=== PATIENT | female | born 1955 | race Caucasian/White ===

== ENCOUNTER → 2017-04-17 | Outpatient (CLI) | payer BC, SELFPAY | PROVIDERS: Visit Provider Internal Medicine Adolescent Medicine | DX: Z12.31 Encounter for screening mammogram for malignant neoplasm of breast (principal) | CPT/HCPCS: 77067; G0202 ==

== ENCOUNTER → 2018-07-11 15:17 | Outpatient (CLI) | payer BC, SELFPAY ==
--- NOTE | 2018-07-11 15:22 | XR_ITS ---
XR hand LT min 3V HISTORY: ITS.REASON: PRIMARY OSTEOARTHRITIS OF LEFT HAND ORDERING PHYSICIAN: Jesus Vicente MD PATIENT AGE: 62 years COMPARISON: None FINDINGS: There are osteoarthritic changes of the first metacarpal carpal joint. There is some sclerosis involving the proximal aspect of the second metacarpal at the first and second metacarpal junction which may be due to osteoarthritic changes. Incidental note is made of triangular fibrocartilage calcification. The metacarpal phalangeal joints and phalanges have an unremarkable appearance. No erosive changes are evident. 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
--- NOTE | 2018-07-11 15:22 | XR_ITS ---
XR hand RT min 3V HISTORY: ITS.REASON: PRIMARY OSTEOARTHRITIS OF RT HAND, pain ORDERING PHYSICIAN: Jesus Vicente MD PATIENT AGE: 62 years COMPARISON: None FINDINGS: There are moderate osteoarthritic changes of the first, second, and third metacarpophalangeal joint as well as the PIP joint of the third and fourth fingers. There is mild ulnar deviation of the phalanges. This may be positional as opposed to pathological. No fracture or dislocation. No erosive changes. IMPRESSION: Mild osteoarthritis of the right hand
== END ==
PROVIDERS: PCP Internal Medicine Adolescent Medicine; Visit Provider Internal Medicine Adolescent Medicine
DX: M19.041 Primary osteoarthritis, right hand (principal); M19.042 Primary osteoarthritis, left hand
CPT/HCPCS: 73130

== ENCOUNTER → 2019-06-20 07:30 | Outpatient (CLI) | payer BC, SELFPAY ==
[2019-06-20 07:56] LABS: Basophils # 0.1 K/mm3 (0-0.2); Eosinophils # 0.3 K/mm3 (0.0-0.4); Lymphocytes # 1.3 K/mm3 (0.7-4.5); Lymphocytes % 17.5 % (10-50); Red Blood Count 5.24 M/mm3 (4.20-5.40); Red Cell Distribution Width 13.7 % (11.5-17.5)
[2019-06-20 10:22] LABS: Chloride 105 mmol/L (98-107)
[2019-06-20 10:23] LABS: Potassium 4.2 mmoL/L (3.5-5.1); Sodium 139 mmol/L (136-145)
[2019-06-20 10:25] LABS: Alanine Aminotransferase 36 U/L (12-78); Blood Urea Nitrogen 19 mg/dl (7-17); Estimated Glomerular Filt Rate 56 ml/min (>60); GFR (African American) 68 ML/MIN (>60)
[2019-06-20 10:26] LABS: Albumin Level 3.9 g/dl (3.5-5.0); Albumin/Globulin Ratio 1.6 (1.1-1.8); Alkaline Phosphatase 113 U/L (38-126); Anion Gap 11.2 mEq/L (5-15); Aspartate Amino Transferase 37 U/L (14-36); Calcium 9.7 mg/dl (8.4-10.2); Carbon Dioxide 27 mmol/L (22.0-30.0); Chol/HDL Ratio 5.2 (1-3.5); Cholesterol 207 mg/dl (140-200); Globulin 2.5 g/dL (1.3-3.2); Glucose 99 mg/dl (74-100); HDL Cholesterol 40 mg/dl (40-60); Total Protein,Serum 6.4 g/dl (6.3-8.2); Triglycerides 375 mg/dl (30-150); VLDL Cholesterol 75 mg/dL (0-40)
[2019-06-20 10:37] LABS: Direct LDL Cholesterol 87.61 mg/dL (100-129)
[2019-06-20 10:38] LABS: Basophils % 1.2 % (0.1-2.0); Eosinophils % 3.7 % (0.1-12.0); Hematocrit 46.3 % (37.0-47.0); Mean Corpuscular HGB Conc 32.4 g/dL (31.8-35.4); Mean Corpuscular Hemoglobin 28.6 pg (27.0-31.2); Mean Corpuscular Volume 88.4 fl (81-99); Mean Platelet Volume 8.7 fl (7.4-10.4); Monocytes # 0.5 K/mm3 (0.1-1.0); Monocytes % 6.9 % (1.7-9.3); Neutrophils # 5.2 K/mm3 (1.8-7.8); Neutrophils % 70.6 % (37.0-80.0); Platelet Count 302 K/mm3 (142-424); White Blood Count 7.3 K/mm3 (4.8-10.8)
[2019-06-20 10:57] LABS: Thyroid Stimulating Hormone 0.82 uIU/mL (0.465-4.68)
== END ==
PROVIDERS: Visit Provider Internal Medicine Adolescent Medicine
DX: E78.1 Pure hyperglyceridemia (principal); M15.0 Primary generalized (osteo)arthritis; R60.9 Edema, unspecified
CPT/HCPCS: 36415; 80053; 80061; 84443; 85025

== ENCOUNTER → 2019-10-13 15:42 | Outpatient (CLI) | payer BC, SELFPAY ==
--- NOTE | 2019-10-13 | MM_ITS ---
PROCEDURE: MM DIG SCREENING MAMM BI W/CAD DIGITAL BREAST TOMOSYNTHESIS INCLUDED Patient Age:64Y CLINICAL INDICATION: 64-year-old. Routine screening. No hormones no new complaints. Noncontributory family history COMPARISON: OUTSIDE MAMMOGRAM STUDIES FROM [facility] NOW AVAILABLE DIGMAMMS MAMMOGRAM SCREEN-DIE DESIGNER N/C from 11/24/2009 DIGMAMMS MAMMOGRAM SCREEN-DIE DESIGNER N/C from 08/14/2011 [facility] DIG MAMM-SCREEN DANIEL W/CAD from 04/17/2017 TECHNIQUE: Standard CC and MLO images were obtained. R2 CAD reviewed. Bilateral digital breast tomosynthesis included. FINDINGS: Low-density breast with diffuse fatty replacement. No dominant or suspicious new mass. no suspicious calcifications. Scattered benign calcifications with no significant change since march 2017. Benign spherical dense benign calcifications most evident on left; with a few small secretory calcifications on right. Left Breast. Small The 7 Mm Ring-like Area Of Reflecting Focus Of Stable Oil Cyst Fatty Necrosis No Significant New findings either breast Follow-up 1 year recommended IMPRESSION: 1..Stable mammogram. No new areas of concern. Low-density breast generalized fatty replacement Bilateral follow-up 1 year recommended BI-RAD Category: 2 Benign Finding(s) FOLLOW-UP: 1YR 1 Year Follow-up the (A letter has been sent to the patient regarding results of the study.) Dictated by: Stalin Ugalde MD 10/20/2019 12:07 Electronically signed by Stalin Ugalde MD in [place] 10/20/2019 12:07
== END ==
PROVIDERS: PCP Internal Medicine Adolescent Medicine; Visit Provider Nurse Practitioner Family
DX: Z12.31 Encounter for screening mammogram for malignant neoplasm of breast (principal)
CPT/HCPCS: 77063; 77067

== ENCOUNTER → 2019-11-26 12:51 | Outpatient (CLI) | payer BC, SELFPAY ==
--- NOTE | 2019-11-26 12:59 | CT_ITS ---
PROCEDURE: CT MASTOID W/O CLINICAL HISTORY: Recurrence/frequent mastoiditis COMPARISON: No exams were available for comparison TECHNIQUE: Axial images obtained with sagittal and coronal reformats. All CT scans at the facility use one or more dose reduction, viz: automated exposure control, ma/kV adjustment per patient size (including targeted exams where dose is matched to indication, i.e. head), or iterative reconstruction technique. FINDINGS: Exam is performed without IV contrast. The right mastoid sinus has an unremarkable appearance. There is some minimal opacification of the left mastoid air cells along the inferior tip of the mastoid sinus and also along the posterior and superior aspect of the left mastoid sinus. The middle ears are where aerated bilaterally. The middle ear ossicles have an unremarkable appearance. There is no evidence of scutal erosion or cholesteatoma. The acoustic foramina are symmetric. No bony destructive process is evident. IMPRESSION: There is mild opacification of the left mastoid sinus suggesting underlying inflammatory change without evidence of acute mastoiditis/bony destructive change or cholesteatoma. Dictated b Keanu Mcgrath MD 11/26/2019 17:12 Keanu Mcgrath MD in [place] 11/26/2019 17:12
--- NOTE | 2019-11-26 13:00 | CT_ITS ---
PROCEDURE: CT FACIAL BONES WO CON CLINICAL HISTORY: RECURRENT MAXILLARY, MASTOIDITIS OF BOTH SIDES For current maxillary sinusitis COMPARISON: No exams were available for comparison TECHNIQUE: Axial images obtained with sagittal and coronal reformats. All CT scans at the facility use one or more dose reduction, viz: automated exposure control, ma/kV adjustment per patient size (including targeted exams where dose is matched to indication, i.e. head), or iterative reconstruction technique. FINDINGS: No mucosal thickening or air-fluid levels. The ostiomeatal complexes are patent. No significant nasal septal deviation. No sinus mass or bony erosive process. The TMJs have an unremarkable appearance. The orbits are unremarkable. There is only minimal mucosal thickening of the anterior and superior aspect of the right maxillary sinus. IMPRESSION: No acute finding CT sinuses. There is minimal mucosal thickening of the right maxillary sinus anteriorly and superiorly which is of questionable clinical significance Dictated b Keanu Mcgrath MD 11/26/2019 17:24 Keanu Mcgrath MD in [facility] 11/26/2019 17:24
== END ==
PROVIDERS: PCP Internal Medicine Adolescent Medicine; Visit Provider Internal Medicine Adolescent Medicine
DX: J01.01 Acute recurrent maxillary sinusitis (principal); H70.93 Unspecified mastoiditis, bilateral
CPT/HCPCS: 70486

== ENCOUNTER 2020-01-05 14:48 | Observation (INO) | payer BC, SELFPAY ==
[2020-01-05] VITALS (28 sets, daily range): BP systolic 128–184; BP diastolic 77–110; PULSE 72–102; RESP 16–20; TEMP 36.1–43; O2SAT 93–97; BMI 33.6; BMI 33.7
--- NOTE | 2020-01-05 14:49 | XR_ITS ---
PROCEDURE: XR ANKLE RT 2V CLINICAL INDICATION: fall, deformity noted Posttraumatic pain COMPARISON: No exams were available for comparison FINDINGS: There is fracture dislocation of the ankle. Two views are obtained demonstrating lateral dislocation of the talus with comminuted and displaced fracture of the distal fibula. There is foreshortening of the ankle with bending of the talus on the distal tibia. There is displaced avulsion fracture medial malleolus with the fracture fragment displaced laterally by 2 cm. IMPRESSION: Fracture dislocation of the ankle Dictated by: Keanu Mcgrath MD 01/05/2020 16:35 Keanu Mcgrath MD in [place] 01/05/2020 16:35
--- NOTE | 2020-01-05 14:50 | PC.NURSE ---
notified rad of xray order, spoke with anthony
--- NOTE | 2020-01-05 14:59 | PC.NURSE ---
CLYDE ENCISO spoke with Dr. Aguero at this time
--- NOTE | 2020-01-05 15:00 | XR_ITS ---
PROCEDURE: XR CHEST PORTABLE CLINICAL HISTORY: pre-op COPD COMPARISON: CR CXR CHEST(2 VIEWS-NOT PORTABLE) from 01/23/2016 FINDINGS: The cardiomediastinal silhouette and pulmonary vascularity are within normal limits. The lungs are clear without infiltrates, suspicious nodules, or pleural effusions. No acute bony abnormalities. IMPRESSION: No acute findings. Dictated by: Keanu Mcgrath MD 01/05/2020 16:32 Keanu Mcgrath MD in [place] 01/05/2020 16:32
--- NOTE | 2020-01-05 15:01 | PC.NURSE ---
rad at BS for portable xray
--- NOTE | 2020-01-05 15:01 | HMH.EDGENADL ---
ED Disposition Clinical Impression: Fracture dislocation of right ankle Qualifiers: Encounter type: initial encounter Fracture type: open Open fracture type: open type I or II Qualified Code(s): S82.891B - Other fracture of right lower leg, initial encounter for open fracture type I or II Disposition: Still a Patient Condition on Discharge: Fair - Critical Care Critical Care Time: No Attestation: On 01/05/20, the high probability of a clinically significant, sudden or life threatening deterioration of the following system(s) required my full and direct attention, intervention and personal management. The time I documented below is in addition to time spent performing reported procedures but includes the following listed in this critical care notation. Medical Decision Making - Medical Records Medical records reviewed: Yes: I reviewed the patient's medical records. - Refugio Inquiry Pt receiving controlled substance: Yes Refugio was queried for this patient: No Reason not queried -: Emergent pt cond-no time Risks and benefits of using a controlled substance: were not discussed with pt by me Vital Signs: 01/05/20 14:48 01/05/20 15:01 01/05/20 15:30 Temperature 99.4 F Temperature Source Oral Pulse Rate [Right Radial] 96 H 89 98 H Respiratory Rate 18 18 18 Blood Pressure [Right Arm] 128/84 149/77 H 157/93 H Blood Pressure Mean [Right Arm] 98 101 114 Blood Pressure Source [Right Arm] Automatic Cuff Automatic Cuff Automatic Cuff Blood Pressure Position [Right Arm] Sitting Sitting 02 Sat by Pulse Oximetry 93 L 95 93 L Oxygen Delivery Method Room Air Room Air Room Air Oxygen Flow Rate (LPM) 01/05/20 16:02 01/05/20 16:07 01/05/20 16:10 Temperature Temperature Source Pulse Rate [Right Radial] 102 H 95 H 93 H Respiratory Rate 18 16 16 Blood Pressure [Right Arm] 147/103 H 134/88 144/83 H Blood Pressure Mean [Right Arm] 117 103 103 Blood Pressure Source [Right Arm] Automatic Cuff Automatic Cuff Automatic Cuff Blood Pressure Position [Right Arm] Sitting Sitting 02 Sat by Pulse Oximetry 96 94 L 93 L Oxygen Delivery Method Nasal Cannula Nasal Cannula Nasal Cannula Oxygen Flow Rate (LPM) 2 2 01/05/20 16:15 Temperature Temperature Source Pulse Rate [Right Radial] 94 H Respiratory Rate 16 Blood Pressure [Right Arm] 142/84 H Blood Pressure Mean [Right Arm] 103 Blood Pressure Source [Right Arm] Automatic Cuff Blood Pressure Position [Right Arm] Sitting 02 Sat by Pulse Oximetry 94 L Oxygen Delivery Method Nasal Cannula Oxygen Flow Rate (LPM) 2 - Lab Data Lab results reviewed: Yes: I reviewed the patient's lab results. Lab Results 01/05/20 16:00: WBC 16.9 H, RBC 4.71, Hgb 14.6, Hct 43.2, MCV 91.6, MCH 31.1, MCHC 33.9, RDW 14.2, Plt Count 301, MPV 7.1 L, Neut % (Auto) 84.6 H, Lymph % (Auto) 8.8 L, [place] % (Auto) 5.3, Eos % (Auto) 0.7, Baso % (Auto) 0.6, Neut # (Auto) 14.3 H, Lymph # (Auto) 1.5, [place] # (Auto) 0.9, Eos # (Auto) 0.1, Baso # (Auto) 0.1, Total Counted 100, Neutrophils % (Manual) 78 H, Lymphocytes % (Manual) 20, Monocytes % (Manual) 2, Platelet Estimate Normal, RBC Morphology Normal 01/05/20 16:00: Sodium 144, Potassium 4.2, Chloride 112 H, Carbon Dioxide 26, Anion Gap 10.2, BUN 21 H, Creatinine 1.20 H, Estimated Creat Clear 66, Estimated GFR 46 L, Est GFR ( Amer) 55 L, Glucose 93, Calcium 9.0 01/05/20 16:00: SARS-CoV-2 IgG Ab (Rapid) Negative, SARS-CoV-2 IgM Ab (Rapid) Negative Result diagrams: 01/05/20 16:00 01/05/20 16:00 Orders (Tests/Meds): ED MEDICATIONS Generic Name Dose Route Start Last Admin Trade Name Freq PRN Reason Stop Dose Admin Acetaminophen 650 mg 01/05/20 18:44 Acetaminophen 325mg Tab PO 02/04/20 18:43 Q6HP PRN Mild to Moderate Pain Atorvastatin Calcium 40 mg 01/06/20 09:00 Lipitor 40mg Tablet PO 02/05/20 08:59 DAILY JOHN Lisinopril/HCTZ 1 each 01/06/20 09:00 Zestoretic 10/12.5mg Tablet PO 02/05/20 08:59 DAILY JOHN Hydr
--- NOTE | 2020-01-05 15:22 | PC.NURSE ---
Dr. Aguero at BS
--- NOTE | 2020-01-05 15:27 | PC.NURSE ---
Dr. Aguero reports she has already been in contact with Dr. Vicente about pt.
--- NOTE | 2020-01-05 16:02 | PC.NURSE ---
Dr Jasmine and Magdiel from anesthesia at for reduction of R ankle fracture and dislocation. Pt on O2 @ 2L per NC NS infusing per open rate in 20 g IV In L AC management services technician in place. Anesthesia administered Fentanyl 100 mcg, Lidocaine 100 mg, Propofol 100mg per IV for conscious sedation. Magdiel from anesthesia states he would use the rest of the vial of fentanyl for pts surgery.
--- NOTE | 2020-01-05 16:04 | XR_ITS ---
PROCEDURE: XR TIBIA FIBULA RT 2V CLINICAL INDICATION: post reduction Postreduction ankle dislocation COMPARISON: No exams were available for comparison FINDINGS: There has been interval reduction of the ankle dislocation. There is mild residual lateral subluxation of the talus with 13 mm lateral displacement. Transverse fracture involves the base of the medial malleolus. The medial malleolus is displaced laterally by 13 mm. Comminuted fracture involves the distal aspect of the fibula with mild lateral angulation and 7 mm lateral displacement of the distal fracture fragment. IMPRESSION: Status post reduction of the ankle dislocation with improved but persistent lateral angulation and displacement of the distal fracture fragments Dictated by: Keanu Mcgrath MD 01/05/2020 17:23 Keanu Mcgrath MD in [place] 01/05/2020 17:23
[2020-01-05 16:14] LABS: Basophils # 0.1 K/mm3 (0-0.2); Basophils % 0.6 % (0.1-2.0); Eosinophils # 0.1 K/mm3 (0.0-0.4); Eosinophils % 0.7 % (0.1-12.0); Hematocrit 43.2 % (37.0-47.0); Hemoglobin 14.6 g/dL (12.2-16.2); Lymphocytes # 1.5 K/mm3 (0.7-4.5); Lymphocytes % 8.8 % (10-50); Mean Corpuscular HGB Conc 33.9 g/dL (31.8-35.4); Mean Corpuscular Hemoglobin 31.1 pg (27.0-31.2); Mean Corpuscular Volume 91.6 fl (81-99); Mean Platelet Volume 7.1 fl (7.4-10.4); Monocytes # 0.9 K/mm3 (0.1-1.0); Monocytes % 5.3 % (1.7-9.3); Neutrophils # 14.3 K/mm3 (1.8-7.8); Neutrophils % 84.6 % (37.0-80.0); Platelet Count 301 K/mm3 (142-424); Red Blood Count 4.71 M/mm3 (4.20-5.40); Red Cell Distribution Width 14.2 % (11.5-17.5); White Blood Count 16.9 K/mm3 (4.8-10.8)
--- NOTE | 2020-01-05 16:14 | PC.NURSE ---
rad at BS for post reduction xray
[2020-01-05 16:16] LABS: MANUAL DIFFERENTIAL MANUAL DIFFERENTIAL (MANUAL DIFF)
[2020-01-05 16:21] LABS: Chloride 112 mmol/L (98-107); Sodium 144 mmol/L (136-145)
--- NOTE | 2020-01-05 16:21 | ECG_ITS ---
APPROVED REPORT Exam: Resting ECG HR:90 bpm ECG Measurements Heart Rate 90 AXES MS 150 P 74 QRSd 62 QRS 44 QT 368 T 44 QTc 450 <Conclusion> Normal sinus rhythm Normal ECG Electronically signed by : Jesus Vicente, 01/08/2020 07:31:39
--- NOTE | 2020-01-05 16:21 | PC.NURSE ---
per warehouse team member notified admissions to place pt in a prater bed until after surgery
[2020-01-05 16:22] LABS: Potassium 4.2 mmoL/L (3.5-5.1)
[2020-01-05 16:24] LABS: Blood Urea Nitrogen 21 mg/dl (7-17); Creatinine Clearance Estimated 66 mL/min (50-200); Estimated Glomerular Filt Rate 46 ml/min (>60); GFR (African American) 55 ML/MIN (>60)
[2020-01-05 16:25] LABS: Anion Gap 10.2 mEq/L (5-15); Carbon Dioxide 26 mmol/L (22.0-30.0); Glucose 93 mg/dl (74-100)
--- NOTE | 2020-01-05 16:25 | HMH.ORTHOCON ---
*Admission Date: 01/05/20 *Reason for consult:: open fracture R ankle *History of present illness: 64-year-old female presents to the ED this afternoon via EMS after sustaining a fall at home around 1 hour ago. She was going down the stairs in her garage and missed a step, rolling the ankle and falling to the ground. She did sustain an open fracture of the ankle, which was provisionally splinted in the field. She denies numbness or tingling in the toes. No prior injuries to or surgeries on this ankle. No history of diabetes or baseline peripheral neuropathy. She denies loss of consciousness during this fall or pain in any other location. She received Ancef on arrival to the ER. Last tetanus was 3 to 4 years ago. She ate a ham sandwich, corn chips and Coca-Cola approximately 1 hour ago, with 8 ounces of water 15 minutes ago. She is currently on amoxicillin for sinus infection, which has given her diarrhea. She takes aspirin but no other anticoagulants. Medical history includes hypertension and mild COPD. She has never been a smoker. [facility] History I have reviewed the patient's past medical history: Yes Medical History: Reports:: Depression, Hyperlipidemia, Hypertension Denies:: Cancer, Diabetes Mellitus Type 1, Diabetes Mellitus Type 2, Internal Pacemaker, MRSA, Seizures *Have you ever received a pneumonia vaccine?: No *Have you received a flu vaccine this season?: No Other Medical History: Denies: Blood Transfusion Reaction Laterality Cases: Left: Arthroscopy Shoulder, Bilateral: Myringotomy (Ear Tubes) Other Surgeries: Yes: Appendectomy, Cholecystectomy, Hysterectomy-Total. No: Pacemaker Amputation: No Fractures: No - *Social History Smoking Status: Never smoker Alcohol Intake: never Substance Use Type: denies use *Occupational Status:: other Housing: house Household Members: spouse *Travel in the last 8 weeks: None - Psychiatric History Pschychiatric History:: Reports:: Depression Family Hx:: No significant family history Review of Systems - Review of Systems Review of systems:: pertinent systems reviewed and negative unless documented below - *Neurologic Denies numbness, Denies weakness Meds Home Medications Medication Instructions Recorded Confirmed Type atorvastatin 40 mg tablet 40 mg PO DAILY 04/04/18 01/05/20 History vilazodone 40 mg tablet 40 mg PO DAILY 04/04/18 01/05/20 History Montelukast Sodium [Montelukast 10 mg PO QPM 05/06/18 01/05/20 History 10mg Tab] bupropion HCl 150 mg 24 hr tablet, 300 mg PO DAILY 30 Days #60 tab 07/24/18 01/05/20 History extended release Amoxicillin [Amoxicillin 500mg 500 mg PO BID 01/05/20 01/05/20 History Cap] Aspirin [Aspirin 81mg chewable 81 mg PO DAILY 01/05/20 01/05/20 History tab] Hydrocodone/Acetaminophen 1 each PO QID 01/05/20 01/05/20 History [Hydrocodone-Acetamin 5-325 mg] Lisinopril/Hydrochlorothiazide 1 tab PO DAILY 01/05/20 01/05/20 History [Lisinopril-Hctz 10-12.5 mg Tab] Allergies Allergy/AdvReac Type Severity Reaction Status Date / Time Sulfa (Sulfonamide Allergy Intermediate Hives Verified 06/09/18 13:54 Antibiotics) pseudoephedrine Allergy Mild Hives Verified 06/09/18 13:54 [From [facility]] adhesive Allergy Rash Verified 06/09/18 13:54 Exam Vital signs and Labs for Last 24 Hours: Temp Pulse Resp BP Pulse Ox 99.4 F 95 H 16 134/88 94 L 01/05/20 14:48 01/05/20 16:07 01/05/20 16:07 01/05/20 16:07 01/05/20 16:07 Laboratory Results - last 24 hr 01/05/20 16:00: WBC 16.9 H, RBC 4.71, Hgb 14.6, Hct 43.2, MCV 91.6, MCH 31.1, MCHC 33.9, RDW 14.2, Plt Count 301, MPV 7.1 L, Neut % (Auto) 84.6 H, Lymph % (Auto) 8.8 L, [place] % (Auto) 5.3, Eos % (Auto) 0.7, Baso % (Auto) 0.6, Neut # (Auto) 14.3 H, Lymph # (Auto) 1.5, [place] # (Auto) 0.9, Eos # (Auto) 0.1, Baso # (Auto) 0.1 I & O for Last 24 hours: Intake & Output 09/1301/04/20 01/05/20 01/06/20 11:59 11:59 11:59 11:59 Weight 190 lb
[2020-01-05 16:35] LABS: Lymphocytes % 20 % (10-50); Monocytes % 2 % (2-9); Neutrophils % 78 % (42-76); Platelet Estimate Normal; RBC Morphology Normal; Total Cells Counted 100
--- NOTE | 2020-01-05 16:40 | PC.NURSE ---
report given to calos herzog pt being transported to surgery at this time per anesthesia and calos herzog
[2020-01-05 16:48] LABS: Coronavirus 19 IgG Antibody Negative (Negative); Coronavirus 19 IgM Antibody Negative (Negative)
--- NOTE | 2020-01-05 16:51 | PC.NURSE ---
applied per Dr. Jasmine after reduction
--- NOTE | 2020-01-05 16:55 | XR_ITS ---
PROCEDURE: XR ANKLE RT 2V CLINICAL INDICATION: C-ARM CASE IN OR. COMPARISON: CR XR TIBIA FIBULA RT 2V from 01/05/2020 FINDINGS: Time: 46 seconds Multiple images submitted with the C-arm during the reduction of the ankle fracture dislocation. Two pins were the regionally placed in the proximal tibia and 1 in the calcaneus with traction applied and reduction of the ankle dislocation. Final images show improved alignment of the distal fibular and medial malleolar fracture as well as relocation of the ankle. IMPRESSION: Status post open reduction ankle fracture dislocation as described above Dictated by: Keanu Mcgrath MD 01/05/2020 19:02 Keanu Mcgrath MD in [place] 01/05/2020 19:02
--- NOTE | 2020-01-05 17:30 | P.PN_ITS ---
[facility] Anesthesia Checklist - Patient Identification Patient Identification: Arm Band, Verbal (Name & ) - Structural Data Admitted From: Emergency Dept Planned Operative Procedure/s: Right ankle I&D, External fixation Consent for Planned Operative Procedure(s) Verified: Yes Verified Documents: Surgical Consent, History and Physical - NPO Status Verified Time NPO: 14:00 - Chart Verification Results Verified: CBC, BMP, ECG - Additional verifications Anesthesia Reactions: No Hx Blood Transfusions: No Blood Transfusion Reaction: No - Airway Assessment C-Spine Mobility Assessed: Yes (MP 2, TMD3, Short neck, supple) TMJ Mobility Assessed: Yes Dentition: Good Dentition - Neurological Assessment Level of Consciousness: Awake, Alert, Appropriate, Follows Commands Hx Seizures: No Numbness or tingling in extremities: No - Anesthesia Plan Anesthesia Risk discussed: Yes Anesthesia Plan: Verified ASA Class: II (Emergent) Anesthesia Type: General [facility] History I have reviewed the patient's past medical history: Yes Medical History: Reports:: Depression, Hyperlipidemia, Hypertension Denies:: Cancer, Diabetes Mellitus Type 1, Diabetes Mellitus Type 2, Internal Pacemaker, MRSA, Seizures *Have you ever received a pneumonia vaccine?: No *Have you received a flu vaccine this season?: No Other Medical History: Denies: Blood Transfusion Reaction Comment:: Obesity Anesthesia experience/problems:: Delayed awakening Laterality Cases: Left: Arthroscopy Shoulder, Bilateral: Myringotomy (Ear Tubes) Other Surgeries: Yes: Appendectomy, Cholecystectomy, Hysterectomy-Total. No: Pacemaker Amputation: No Fractures: No - *Social History Smoking Status: Never smoker Alcohol Intake: never Substance Use Type: denies use *Occupational Status:: other Housing: house Household Members: spouse *Travel in the last 8 weeks: None - Psychiatric History Pschychiatric History:: Reports:: Depression Family Hx:: No significant family history
--- NOTE | 2020-01-05 18:29 | P.PN_ITS ---
[facility] Anesthesia Record Part I Intake, IV Amount: 600 Estimated blood loss (mL): 20 Urine output (mL): 0 (NM) Blood Products used (#): none Blood Pressure: 159/110 SaO2: 96 Pulse Rate: 91 Respiratory Rate: 16 Temperature: 97.0 F Patient is:: Awake, Drowsy, Nasal O2, Stable Stable to PACU at:: 18:23
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
--- NOTE | 2020-01-05 19:03 | PC.NURSE ---
Report received from Rosalie Carroll RN
--- NOTE | 2020-01-05 19:10 | PC.NURSE ---
patient up to floor from surgery @ 19:07.
--- NOTE | 2020-01-05 19:17 | HMH.OPNOTE ---
Date of procedure: 01/05/20 Pre-op Diagnosis:: grade II open fracture R ankle Post-op Diagnosis:: grade II open fracture R ankle Procedure performed:: 1) irrigation and debridement (I&D) open R ankle fracture 2) external fixator application RLE Surgeon:: Jeanette Jasmine MD Supervisor Extrusion(s):: Guerline Sesay GLOVE CUTTER:: Magdiel Witt Anesthesia: GETA Estimated blood loss (mL): 25 Clinical Note:: 64-year-old female presents to the ED this afternoon via EMS after sustaining a fall at home around 1 hour ago. She was going down the stairs in her garage and missed a step, rolling the ankle and falling to the ground. She did sustain an open fracture of the ankle, which was provisionally splinted in the field. She denies numbness or tingling in the toes. No prior injuries to or surgeries on this ankle. No history of diabetes or baseline peripheral neuropathy. She denies loss of consciousness during this fall or pain in any other location. She received Ancef on arrival to the ER. Last tetanus was 3 to 4 years ago. She ate a ham sandwich, corn chips and Coca-Cola approximately 1 hour ago, with 8 ounces of water 15 minutes ago. She is currently on amoxicillin for sinus infection, which has given her diarrhea. She takes aspirin but no other anticoagulants. Medical history includes hypertension and mild COPD. She has never been a smoker. The patient was sedated in the ED by anesthesia using fentanyl and propofol, the wound irrigated with 1L saline, and closed reduction of the ankle was performed by myself, reducing the talus back under the plafond. Betadine soaked gauze was applied to the open wound and provisional orthoglass splint applied. Post-reduction XR obtained. I discussed the emergent nature of treatment with the patient, and the need for thorough irrigation of the wound. I discussed external fixation of the fracture, giving the soft tissues time to recover and infection to declare itself if it is going to develop, followed by removal of ex-fix and definitive fixation, likely within the next 7-10 days. I discussed the risks of surgery with the patient, including bleeding, neurovascular damage, infection due to open fracture, post-traumatic arthritis, persistent pain and/or limp, risk of ex-fix pin site infection, possible need for repeat I&D in a few days, and the need for definitive fixation once soft tissues allow. The patient vocalized understanding of the risks and informed consent was obtained. Operative findings:: fracture: bimalleolar fracture fibula = transverse with some comminution and posterior butterfly fragment tibia = horizontal medial malleolus fracture soft tissue: open wound from fracture medial, abrasion superolateral leg open fx wound/medial: C-shaped, 1.3cm wide x 3cm long; with 2.3 extension/laceration inferiorly proximal wound: avulsion of superficial epidermal layer with expose subcutaneous fat/dermis = 3.5cm long x 2.5cm wide external fixator: [place] 3 180mm threaded pins x2 = proximal tibia 300mm centrally-threaded calc pin through calcaneus connected by clamps/radiolucent bars Operative note:: The patient was identified in preoperative holding and the R leg signed by myself. I reviewed the consent with the patient and her and answered all questions. She was then taken to the operating room and placed supine on the OR table. Ancef was given in the ED on arrival, and was redosed on arrival to the OR. Once the patient was asleep, the splint was removed from her right ankle and the right leg prepped with betadine and draped in the usual sterile fashion from the upper thigh to the toes. Timeout was performed, identifying the correct patient, correct procedure, and correct site. The procedure was begun by using the C-arm to identify the fracture site at the right ankle. Bimalleolar fracture-dislocation was confirmed. The lateral wound on the proximal tibia was cleansed thoroughly with sterile saline and
--- NOTE | 2020-01-05 22:01 | PC.NURSE ---
1899-detailed report called to LEELEE Clark 1902-Pt transported to 2nd floor room 214 via hospital bed w/joey rails up and left in care of LEELEE Clark w/bed locked in lowest position, vss, family at bedside, pt stable
[2020-01-06] VITALS (8 sets, daily range): BP systolic 121–165; BP diastolic 55–85; PULSE 74–88; RESP 16–18; TEMP 36.5–37.1; O2SAT 95–99; BMI 33.8
--- NOTE | 2020-01-06 05:46 | PC.NURSE ---
Late entry: @ 3042 S/W Dr. Jasmine regarding bleeding from pt's lower medial pin site. per MD, reinforce the dressing, continue to keep elevated.
--- NOTE | 2020-01-06 05:52 | PC.NURSE ---
Pt is A&Ox4 and has ambulated oOOB 5x this shift to the [facility] with staff assist x1 and walker. Pt has tolerated very well. Pt has c/o pain to RLE and medicated 4x per thus far with good relief on reassessment. LUngs are CTA, pt has used IS and reached goal of 1500ml. Room air SaO2 is 95-97%. ABD is soft, non-tender, with active BS. Pt reports last BM was 01/05/20. Pt reports she was on a oral ABX that was causing her to have some bowel incontinence. Pt reports this is common with abx treatment. Pt is wearing a brief at this time and has remainder dry this shift. Surgical dressing in place to RLE surrounding the external fixator device. Moderated bleeding noted to lower, proximal pin site. Per MD Jasmine, dressing was reinforced 2x with soft roll and RAAD wrap. Bleeding appears to be controlled and only dried blood is noted on the corners. Ice packs changed 2x this shift. Scattered bruising noted to BLE. Scuds in place to LLE. VSS, call light within reach will continue to monitor.
[2020-01-06 06:10] LABS: Basophils % 0.2 % (0.1-2.0); Eosinophils % 0.2 % (0.1-12.0); Hematocrit 34.4 % (37.0-47.0); Lymphocytes # 0.6 K/mm3 (0.7-4.5); Lymphocytes % 4.1 % (10-50); Mean Corpuscular HGB Conc 34.8 g/dL (31.8-35.4); Mean Corpuscular Hemoglobin 30.8 pg (27.0-31.2); Mean Corpuscular Volume 88.4 fl (81-99); Mean Platelet Volume 7.5 fl (7.4-10.4); Monocytes # 0.6 K/mm3 (0.1-1.0); Monocytes % 4.3 % (1.7-9.3); Neutrophils # 12.9 K/mm3 (1.8-7.8); Neutrophils % 91.2 % (37.0-80.0); Platelet Count 241 K/mm3 (142-424); Red Cell Distribution Width 14.5 % (11.5-17.5); White Blood Count 14.2 K/mm3 (4.8-10.8)
[2020-01-06 06:13] LABS: Chloride 107 mmol/L (98-107); Potassium 4.6 mmoL/L (3.5-5.1); Sodium 137 mmol/L (136-145)
[2020-01-06 06:16] LABS: Anion Gap 11.6 mEq/L (5-15); Blood Urea Nitrogen 19 mg/dl (7-17); Calcium 8.6 mg/dl (8.4-10.2); Carbon Dioxide 23 mmol/L (22.0-30.0); Creatinine Clearance Estimated 80 mL/min (50-200); Estimated Glomerular Filt Rate 56 ml/min (>60); GFR (African American) 68 ML/MIN (>60); Glucose 146 mg/dl (74-100)
[2020-01-06 06:17] LABS: MANUAL DIFFERENTIAL MANUAL DIFFERENTIAL (MANUAL DIFF)
[2020-01-06 06:59] LABS: Lymphocytes % 10 % (10-50); Monocytes % 3 % (2-9); Neutrophils % 86 % (42-76); Platelet Estimate Normal; RBC Morphology Normal; Total Cells Counted 100
--- NOTE | 2020-01-06 08:33 | HMH.HP ---
*Admission Date: 01/05/20 *Chief complaint: fall with open ankle fx *History of present illness: 64-year-old female presents to the ED this afternoon via EMS after sustaining a fall at home around 1 hour ago. She was going down the stairs in her garage and missed a step, rolling the ankle and falling to the ground. She did sustain an open fracture of the ankle, which was provisionally splinted in the field. She denies numbness or tingling in the toes. No prior injuries to or surgeries on this ankle. No history of diabetes or baseline peripheral neuropathy. She denies loss of consciousness during this fall or pain in any other location. She received Ancef on arrival to the ER. Last tetanus was 3 to 4 years ago. She ate a ham sandwich, corn chips and Coca-Cola approximately 1 hour ago, with 8 ounces of water 15 minutes ago. She is currently on amoxicillin for sinus infection, which has given her diarrhea. She takes aspirin but no other anticoagulants. Medical history includes hypertension and mild COPD. She has never been a smoker. Above note per orthopedics. Other than hypertension and mild COPD with recurrent sinusitis patient enjoys excellent functional status. [facility] History I have reviewed the patient's past medical history: Yes Medical History: Reports:: Depression, Hyperlipidemia, Hypertension Denies:: Cancer, Diabetes Mellitus Type 1, Diabetes Mellitus Type 2, Internal Pacemaker, MRSA, Seizures *Have you ever received a pneumonia vaccine?: Yes *Have you received a flu vaccine this season?: No Other Medical History: Reports: Arthritis. Denies: Blood Transfusion Reaction Anesthesia experience/problems:: Delayed awakening Laterality Cases: Left: Arthroscopy Shoulder, Bilateral: Myringotomy (Ear Tubes) Other Surgeries: Yes: Appendectomy, Cholecystectomy, Dilation and Curettage, Hysterectomy-Total, Tubal Ligation, Other (Ovarectomy x2). No: Pacemaker Amputation: No Fractures: No - *Social History Last grade of school completed: High school graduate Smoking Status: Never smoker Alcohol Intake: current Alcohol Intake Frequency:: holidays/special occasions only Substance Use Type: denies use *Occupational Status:: employed Housing: house Household Members: spouse *Travel in the last 8 weeks: None - Psychiatric History Pschychiatric History:: Reports:: Depression Family Hx:: No significant family history Review of Systems - Review of Systems Review of systems:: pertinent systems reviewed and negative unless documented below - *Neurologic Denies numbness, Denies weakness Meds Home Medications Medication Instructions Recorded Confirmed Type atorvastatin 40 mg tablet 40 mg PO DAILY 04/04/18 01/05/20 History vilazodone 40 mg tablet 40 mg PO HS 04/04/18 01/06/20 History bupropion HCl 150 mg 24 hr tablet, 300 mg PO DAILY 30 Days #60 tab 07/24/18 01/05/20 History extended release Albuterol Sulfate [Proair 2 puffs IH QID PRN 01/05/20 01/05/20 History Respiclick] Amoxicillin [Amoxicillin 500mg 500 mg PO BID 01/05/20 01/05/20 History Cap] Aspirin [Aspirin 81mg chewable 81 mg PO DAILY 01/05/20 01/05/20 History tab] Fluticasone Propionate [Flonase 2 spr NS DAILY 01/05/20 01/05/20 History 50mcg nasal spray 16gm] Hydrocodone/Acetaminophen 1 each PO QID 01/05/20 01/05/20 History [Hydrocodone-Acetamin 5-325 mg] Lisinopril/Hydrochlorothiazide 1 tab PO DAILY 01/05/20 01/05/20 History [Lisinopril-Hctz 10-12.5 mg Tab] Montelukast Sodium [Singulair 10mg 10 mg PO PM 01/06/20 01/06/20 History tablet] Allergies Allergy/AdvReac Type Severity Reaction Status Date / Time Sulfa (Sulfonamide Allergy Intermediate Hives Verified 06/09/18 13:54 Antibiotics) pseudoephedrine Allergy Mild Hives Verified 06/09/18 13:[address] [facility] [facility]] adhesive Allergy Rash Verified 06/09/18 13:54 Exam Vital signs and Labs for Last 24 Hours: Temp Pulse Resp BP Pulse Ox 98.3 F 88 18 143/75 H
--- NOTE | 2020-01-06 09:50 | HMH.ANESII ---
[facility] Anesthesia Record Part II Discharge Time: 19:03 Destination: Medical Surgical Department PACU nurse assessment reviewed?: Yes Patient Condition:: Good Anesthesia Complications:: None Swallowing reflex intact?: Yes Cyanosis?: No Blood Pressure: 165/85 Pulse Rate: 75 Temperature: 97.7 F Mental Status: Alert & Oriented Pain level:: 0 Nausea and/or vomitting:: None Intake, IV Amount: 0 (Normovolemic)
--- NOTE | 2020-01-06 10:09 | HMH.PHAINT ---
MEDICATION RECONCILIATION COMPLETED ON PATIENT USING EXTERNAL FILL HISTORY FROM PHARMACY AND LIST FROM MD OFFICE. -SHELLIE CANELAD
--- NOTE | 2020-01-06 10:11 | P.CONPHA_ITS ---
[facility] Pharmacy VTE Monitoring - Patient Demographics Admission date: 01/05/20 Report Date: 01/06/20 Time: 10:11 Allergies/Adverse Reactions: Patient Allergies Sulfa (Sulfonamide Antibiotics) Allergy (Intermediate, Verified 06/09/18 13:54) Hives pseudoephedrine [From Sudafed] Allergy (Mild, Verified 06/09/18 13:54) Hives adhesive Allergy (Verified 06/09/18 13:54) Rash Height: 1.6 m Weight: 86.664 kg Patient Problems: Current Active Problems Fracture dislocation of right ankle (Acute) Open fracture of ankle (Acute) - VTE Risk Labs: VTE Related Lab Results Hgb 12.0 g/dL (12.2-16.2) L D 01/06/20 05:43 Hct 34.4 % (37.0-47.0) L 01/06/20 05:43 Plt Count 241 K/mm3 (142-424) 01/06/20 05:43 BUN 19 mg/dl (7-17) H 01/06/20 05:43 Creatinine 1.00 mg/dl (0.52-1.04) 01/06/20 05:43 Estimated Creat Clear 80 mL/min (50-200) 01/06/20 05:43 VTE Score: 6 VTE Risk Level: Moderate Risk - Prophylaxis VTE Prophylaxis Ordered?: Yes Types of VTE Prophylaxis: IPCS Thigh High Location of Applied Device: Left Leg
--- NOTE | 2020-01-06 10:45 | HMH.ORTHPN ---
Subjective Date: 01/06/20 Time: 10:30 Principal diagnosis: open fracture R ankle Interval history: The patient is doing very well this morning. She has already been out of bed with the assistance of nursing and a walker, to a bedside commode. When I enter today, it is with physical therapy, who presents for their first evaluation. I observed her independently rise from bed, stand and ambulate to the door and back, maintaining nonweightbearing status on her right lower extremity the entire time. This was done with no assistance from physical therapy, though they were there for support if needed. She does report one instance of putting a small amount of weight on the right ankle getting up last night, but this hurt significantly and she has not borne any more weight on the leg since. She has had some drainage through her dressings overnight, which were reinforced with no further strikethrough. She has had no fevers or chills overnight. Pain is tolerable with pain medication. PN: Obj Ex Vital signs: Temp Pulse Resp BP Pulse Ox 97.7 F 75 18 165/85 H 95 01/06/20 09:51 01/06/20 09:51 01/06/20 08:00 01/06/20 09:51 01/06/20 08:00 - Constitutional no acute distress - Routine HEENT Exam Head: Present: normocephalic Eye: Present: EOMI ENT: Present: mucous membranes moist - Routine Neck Exam Present: supple, trachea midline - Routine Respiratory Exam Absent: respiratory distress - Routine Cardiovascular Exam Present: RRR - Routine Abdominal Exam Present: soft. Absent: tenderness - Routine Extremities Exam Comments: RLE external fixator in place dressings with mild strikethrough at heel and around calcaneal pins; dried wiggles toes RLE, ankle ROM limited due to ex-fix SILT distally RLE in all distributions palpable pedal pulses RLE, foot/toes pink and warm R calf soft, non-tender - Routine Skin Exam Present: warm - Routine Neurological Exam Present: alert, oriented X3, moving all extremities, normal tone, vision grossly intact, hearing grossly intact, normal speech. Absent: sensory deficit, motor deficit, altered mental status - Routine Psychiatric Exam Present: normal affect Progress Note: A&P (1) Open fracture of ankle Status: Acute Current Visit: Yes (2) Fracture dislocation of right ankle Status: Acute Current Visit: Yes Assessment and Plan for All Diagnoses:: 64yo F POD 1 s/p I&D + ex-fix application open R ankle fracture -- recommend staying at least until tomorrow; I want a full 24 hours of IV antibiotic given open fracture -- continue IV ancef -- DVT prophy: SCD LLE -- encourage incentive spirometer 10x/hr while awake -- PT/OT eval this morning; recommend d/c home -- pain control: oral meds first; IV for breakthrough -- I believe the patient will be safe for d/c home, as her will be available to support and she's demonstrated independence with transfers. She will need to have home health for dressing changes and assistance with acquiring a walker, bedside commode, shower chair and wheelchair.
--- NOTE | 2020-01-06 11:40 | HMH.PTEV ---
Physical Therapy Evaluation Rehab PT IP Evaluation Start: 01/05/20 18:44 Freq: ONCE Status: Active Protocol: Document 01/06/20 11:26 MARCELINA (Rec: 01/06/20 11:40 MARCELINA [id number]) Subjective/History History History Pt. is a 64 y/o female addmitted to [facility] s/p R ankle surgical fixation. Pt. rolled ankle decending stairs at home causing open fracture/ dislocation of the R ankle. Pt . lives at home with her and works. Pt. states she was independent with all ADLs prior to admission. Note done by SPT Kong Cervantes Subjective Subjective Pt. reports minimal pain in R ankle. Rehab PT IP Eval Objective Appearance Patient Behavior Appropriate,Cooperative, Impulsive Patient Orientation Person,Place,Time Difficulty following instructions none Speech Pattern Clear Ambulation Patient Able to Ambulate Yes Ambulation Observation IP General Gait Pattern Observation Decrease Weight Bear (R) Ambulation Distance (feet) 10 Ambulation Assistive Device Standard Walker Ambulation Ability Contact Guard/Hand Hold Balance Ability to Arise Able, uses arms to help Sitting Balance Steady, safe Standing Balance Unsteady Dynamic Sitting Balance Ability Normal Dynamic Standing Balance Ability Fair Transfers Bed Transfer Ability Independent Chair Transfer Ability Independent Sit to Stand Bed Transfer Ability Supervision/Stand by ROM RLE PT ROM Status ABN Abnormal ROM Comment External fixation R ankle MMT RLE PT MMT ABN Abnormal MMT Grade Ex Fix R ankle Rehab PT IP prob,goals,plan Problems Date of Evaluation: 01/06/20 PT IP Problems Transfers,Gait,Balance,Self care,Safety Rehab Potential Rehab Potential Good Equipment Needs Assistive Devices Rolling / Wheeled Walker Plan PT Intervention Plan Transfers,Gait,Therapeutic Exercise PT Plan Frequency BID Duration LOS Discharge Goals Bed Transfer Ability Independent Sit to Stand Chair Transfer Ability Independent Ambulation Assistive Device Standard Walker,Rolling Walker Ambulation Distance (feet) 30 Discharge Plan PT Discharge Plan Pt. would be
--- NOTE | 2020-01-06 12:14 | HMH.OTEV ---
OT Inpatient Evaluation Rehab OT IP Evaluation Start: 01/06/20 10:07 Freq: ONCE Status: Complete Protocol: Document 01/06/20 12:09 [email or web address] (Rec: 01/06/20 12:14 [facility] [id number]) Rehab OT IP Assessment Subjective History Pt oriented x4 on arrival. Pt admitted via ED on 01/05/20 due to open fx/dislocation of R ankle from falling down her back steps. Pt has a past medical history of depression, hyperlipidemia, and HTN. Pt required surgery immediately and an external fixator was placed to right ankle. Pt reports prior to her fall she was independent with all ADLs and IADL's. She did not require any AE. Subjective I don't understand how it happened. Objective Patient Orientation Person,Place,Birthday Upper Extremity Gross ROM WNL Bed Mobility bed mobility-scooting,bed mobility - supine/sit,bed mobility - rolling Assist Level Contact Guard/Hand Hold Transfer Training Sit/Stand Transfer Assist Level Contact Guard/Hand Hold Rehab OT IP prob,goals,plan Problems Date of Evaluation: 01/06/20 OT IP Problems Bed Mobility,Transfers,Gait, Balance,Self care,Safety Rehab Potential Rehab Potential Good Equipment Needs Assistive Devices Straight Cane,Rolling / Wheeled Walker Plan OT intervention Plan Bed Mobility,Transfers,Gait, Balance,Self care,Safety, Therapeutic Exercise OT Plan Frequency Daily Duration LOS Discharge Goals Bed Mobility Ability Standby Assistance Sit to Stand Chair Transfer Ability Supervision/Stand by Chair Transfer Ability Supervision/Stand by Chair Transfer Technique Sit to stand/hop Chair Transfer Assistive Devices Rolling Walker Feeding Ability Independent Lower Body Dressing Ability Assistance X1 Upper Body Dressing Ability Standby Assistance Bathing Ability Assistance x1 Performing Toilet Hygiene Ability Standby Assistance Overall Commode/Toilet Transfer Ability Standby Assistance Discharge Plan OT Discharge Plan Pt would benefit from home health upon returning home
--- NOTE | 2020-01-06 18:28 | PC.NURSE ---
pt has done well today. has called out for pain meds multiple times, prn pain meds given. pt has been very active with getting out of bed to bsc with minimal assist, and working with pt/ot. no more drainage noted since this morning. lungs remain clear. vss. will cont. to monitor.
--- NOTE | 2020-01-06 19:13 | PC.NURSE ---
report given to allen
[2020-01-07] VITALS: BP 144/72; PULSE 65; RESP 16; TEMP 36.9; O2SAT 93
[2020-01-07 04:00] VITALS: BP 129/71; PULSE 75; RESP 18; TEMP 36.7; O2SAT 94
--- NOTE | 2020-01-07 04:57 | PC.NURSE ---
Pt is A&Ox4 and has ambulated to BSC and side of bed several times this shift. Pt has transferred independently and with staff SBA and pt tolerates well. 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 Pt has been moving leg up and down very frequently and rocking it side to side at times. Pt encouraged to keep it still and elevate it when not up to BSC. Pt has complied very well. There is a small trace of edema to the right foot/toes that is visible. BUt it does not appear to be too tight within the dressings. Ice packs reapplied and pt stated this has helped. No new bleeding noted to dressing on RLE. Total linen changed this shift, pt has changed her mind about a bedside basin bath and now states I can just clean up when I get home tomorrow . Pt has tolerated clear liquid diet well. Zofran administered with Dilaudid d/t nausea post pain medication administration. No further c/o of nausea and pt was able to sleep for several hours this shift. Scud to LLE continues and pt tolerated well. Lungs CTA, room air SaO2 93-99%. Peripheral pulses +2, HEALTH CARE RECRUITER is WNL, denies numbness and tingling. New IV placed this shift, #20g peripheral IV to right forearm. Pt tolerated well. VSS, call light within reach, will continue to monitor.
[2020-01-07 05:00] VITALS: BMI 34.2
--- NOTE | 2020-01-07 07:32 | SW/DCPLANNER ---
RECEIVED A REFERRAL FOR DISCHARGE NEEDS FOR THIS PATIENT THAT PRESENTED INTO THE ACUTE HOSPITAL WITH AN OPEN ANKLE FX.... ORIGINALLY ([place]) FELT PATIENT WOULD BE A GOOD CANDIDATE FOR [facility].. I SENT REFERRAL THERE FOR REVIEW AND THE LIASION CALLED ME AND STATED THEY DID NOT HAVE ANY BEDS UNTIL SAT SO IT WAS DECIDED TO DO HOME HEALTHS SERVICES...WILL SET UP ANY HOME HEALTH THAT IS ORDERED ONCE MD MAKES ROUNDS AND PATIENT HAS A D/C ORDER....
[2020-01-07 07:35] VITALS: BP 118/68; PULSE 76; RESP 17; TEMP 36.8; O2SAT 90
--- NOTE | 2020-01-07 07:50 | HMH.DCSUM ---
General - General Admission date:: 01/05/20 Discharge date: 01/07/20 HPI HPI: 64-year-old female presents to the ED this afternoon via EMS after sustaining a fall at home around 1 hour ago. She was going down the stairs in her garage and missed a step, rolling the ankle and falling to the ground. She did sustain an open fracture of the ankle, which was provisionally splinted in the field. She denies numbness or tingling in the toes. No prior injuries to or surgeries on this ankle. No history of diabetes or baseline peripheral neuropathy. She denies loss of consciousness during this fall or pain in any other location. She received Ancef on arrival to the ER. Last tetanus was 3 to 4 years ago. She ate a ham sandwich, corn chips and Coca-Cola approximately 1 hour ago, with 8 ounces of water 15 minutes ago. She is currently on amoxicillin for sinus infection, which has given her diarrhea. She takes aspirin but no other anticoagulants. Medical history includes hypertension and mild COPD. She has never been a smoker. Above note per orthopedics. Other than hypertension and mild COPD with recurrent sinusitis patient enjoys excellent functional status. Hospital Course Hospital Course: Patient was admitted, subjected to intensive ORIF with plate placement. Please see orthopedic note for details. Good surgical result was obtained, she was transferred to the floor in excellent condition. Overnight she did well. Multiple discussions about placement versus home health for undertaken. Patient and her decided that they would feel better with home health and PT agreed that she would tolerate this well. Overnight she did well, ate fairly well. This morning she is alert, awake, other than her ORIF apparatus on her leg exam remains normal. She will be discharged home with pain medication -although she does not have classic joint replacement given her significant orthopedic issues and immobility we will proceed with DVT prophylaxis. Follow-up in Ortho clinic next week. Please note that I have performed a [id number] examination on this patient today. I have determined that because of significant pain and immobility she is unable to leave her home without extreme difficulty and is homebound. She requires assessment for PT/OT/home safety/medication monitoring. Objective Vital signs: Temp Pulse Resp BP Pulse Ox 98.2 F 76 17 118/68 90 L 01/07/20 07:35 01/07/20 07:35 01/07/20 07:35 01/07/20 07:35 01/07/20 07:35 no acute distress - *Routine HEENT Exam Head: Present: normocephalic Eye: Present: EOMI, PERRL ENT: Present: mucous membranes moist - *Routine Neck Exam Present: supple - *Routine Respiratory Exam Present: CTA bilaterally - *Routine Cardiovascular Exam Present: RRR - *Routine Abdominal Exam Present: soft, normoactive bowel sounds. Absent: tenderness - *Routine Extremities Exam Absent: cyanosis, clubbing, edema Comments: ORIF apparatus on right ankle with external fixation devices. Toes visible distally are warm and well-perfused and she can wiggle them without problems. - *Routine Skin Exam Present: warm. Absent: rash - Detailed Eye Exam Eyelids: Bilateral normal inspection DS: Diagnosis - Discharge Diagnosis (1) Open fracture of ankle Status: Acute (2) Fracture dislocation of right ankle Status: Acute Discharge Plan - Patient Discharge Instructions ACTIVITY: Up with assistance DIET: continue same diet Patient Instructions: DI for Ankle Fracture, DI for Surgical Site Infection, DI for Moderate Sedation - Follow up Plan Follow up with: Jeanette Jasmine MD [Physician] - 1 week Disposition: Home Health Service Home Medications: Home Medications Medication Instructions Recorded Confirmed Type atorvastatin 40 mg tablet 40 mg PO DAILY 04/04/18 01/05/20 History vilazodone 40 mg tablet 40 mg PO DAILY 04/04/18 01/06/20 History bupropion HCl 15
[2020-01-07 08:00] VITALS: PULSE 76; RESP 17; O2SAT 90
--- NOTE | 2020-01-07 09:16 | HMH.ORTHPN ---
Subjective Date: 01/07/20 Time: 08:30 Principal diagnosis: open fracture R ankle Interval history: The patient is doing well today, is independent in transfers and reports pain controlled with oral medication. Appetite has been decreased but she denies nausea or vomiting. No chest pain or shortness of breath. No fevers, chills, or new drainage from her dressings. Denies numbness/tingling in RLE. PN: Obj Ex Vital signs: Temp Pulse Resp BP Pulse Ox 98.2 F 76 17 118/68 90 L 01/07/20 07:35 01/07/20 07:35 01/07/20 07:35 01/07/20 07:35 01/07/20 07:35 - Constitutional no acute distress - Routine HEENT Exam Head: Present: normocephalic Eye: Present: EOMI ENT: Present: mucous membranes moist - Routine Neck Exam Present: trachea midline - Routine Respiratory Exam Absent: respiratory distress - Routine Cardiovascular Exam Present: RRR - Routine Abdominal Exam Present: soft. Absent: tenderness - Routine Extremities Exam Comments: RLE external fixator in place dressings with mild strikethrough at heel and around calcaneal pins; dried wiggles toes RLE, ankle ROM limited due to ex-fix SILT distally RLE in all distributions palpable pedal pulses RLE, foot/toes pink and warm R calf soft, non-tender dressings removed, no active drainage from pin sites or wounds wounds clean, sutures intact on medial wound; no ecchymosis or skin necrosis mild soft tissue swelling R foot/ankle - Routine Skin Exam Present: warm - Routine Neurological Exam Present: alert, oriented X3, moving all extremities, normal tone, vision grossly intact, hearing grossly intact, normal speech. Absent: sensory deficit, motor deficit, altered mental status - Routine Psychiatric Exam Present: normal affect Progress Note: A&P (1) Open fracture of ankle Status: Acute Current Visit: Yes (2) Fracture dislocation of right ankle Status: Acute Current Visit: Yes Assessment and Plan for All Diagnoses:: 64yo F POD 2 s/p I&D + ex-fix application open R ankle fracture -- has completed >24hr IV cefazolin for open fracture -- appropriate for d/c today; will send with keflex 500mg po TID x5 days -- DVT prophy: SCD LLE. No anticoagulants; patient will have ex-fix removal and definitive fracture fixation likely next week -- encourage incentive spirometer 10x/hr while awake -- pain control: oral meds first; IV for breakthrough -- ok to d/c home with home health for dressing changes; f/u with me on Saturday01/11/20 -- dressing information and follow-up appt in d/c information
--- NOTE | 2020-01-07 11:02 | HMH.PHAINT ---
DISCHARGE COUNSELING--DISCUSSED DISCHARGE MEDICATIONS WITH PATIENT. CORRECTED D/C LIST WITH DUPLICATES FOR ABX AND PAIN MEDS.
[2020-01-07 11:07] VITALS: BP 120/72; PULSE 78; RESP 17; TEMP 36.7; O2SAT 95
== END 2020-01-07 13:10 | disposition home health service (06) ==
LOC: ER 18:11 → 2ND 18:11 → SDC 18:11
PROVIDERS: Admitting Provider Internal Medicine Adolescent Medicine; Emergency Provider Emergency Medicine; PCP Internal Medicine Adolescent Medicine; Referring Provider Orthopaedic Surgery; Visit Provider Internal Medicine Adolescent Medicine
DX: S82.841B Displaced bimalleolar fracture of right lower leg, initial encounter for open fracture type I or II (principal); W17.89XA Other fall from one level to another, initial encounter; Y92.018 Other place in single-family (private) house as the place of occurrence of the external cause; I10 Essential (primary) hypertension; E78.5 Hyperlipidemia, unspecified; J44.9 Chronic obstructive pulmonary disease, unspecified; Z88.2 Allergy status to sulfonamides; Z88.8 Allergy status to other drugs, medicaments and biological substances; Z79.899 Other long term (current) drug therapy
CPT/HCPCS: 27810; 20690; 29515; 36415; 71045; 73590; 73600; 76000; 80048; 85007; 85025; 86328; 93005; 96365; 96367; 96375; 97110; 97116; 97161; 97165; 97530; 97535; 99285; C1713; G0378; J0330; J2405

== ENCOUNTER → 2020-01-11 08:39 | Outpatient (CLI) | payer BC, SELFPAY ==
--- NOTE | 2020-01-11 08:54 | XR_ITS ---
PROCEDURE: XR ANKLE RT MIN 3V CLINICAL INDICATION: sp RT ankle sx, dos 01/05/2020 Follow-up fracture COMPARISON: CR XR TIBIA FIBULA RT 2V from 01/05/2020 FINDINGS: There is an external fixator in place stabilized at the calcaneus and proximal tibia. Comminuted distal fibular fracture once again noted with mild lateral displacement of the distal fracture fragment of approximately 5 mm. There is a transverse fracture at the base of the medial malleolus with 5 mm distraction of the fracture fragments. IMPRESSION: Status post closed reduction distal tib fib fracture as described above with good alignment Dictated by: Keanu Mcgrath MD 01/11/2020 13:27 Keanu Mcgrath MD in [place] 01/11/2020 13:27
[2020-01-11 11:21] LABS: MANUAL DIFFERENTIAL MANUAL DIFFERENTIAL (MANUAL DIFF)
[2020-01-11 11:41] LABS: Basophils # 0.1 K/mm3 (0-0.2); Eosinophils # 0.3 K/mm3 (0.0-0.4); Eosinophils % 2.9 % (0.1-12.0); Hematocrit 40.4 % (37.0-47.0); Hemoglobin 13.4 g/dL (12.2-16.2); Lymphocytes # 1.5 K/mm3 (0.7-4.5); Lymphocytes % 15.2 % (10-50); Mean Corpuscular HGB Conc 33.2 g/dL (31.8-35.4); Mean Corpuscular Hemoglobin 30.2 pg (27.0-31.2); Mean Platelet Volume 6.8 fl (7.4-10.4); Monocytes # 0.7 K/mm3 (0.1-1.0); Monocytes % 6.7 % (1.7-9.3); Neutrophils # 7.4 K/mm3 (1.8-7.8); Neutrophils % 74.1 % (37.0-80.0); Platelet Count 410 K/mm3 (142-424); Red Blood Count 4.44 M/mm3 (4.20-5.40); Red Cell Distribution Width 14.1 % (11.5-17.5)
[2020-01-11 12:05] LABS: Eosinophils % 2 % (0-3); Lymphocytes % 14 % (10-50); Monocytes % 4 % (2-9); Neutrophils % 78 % (42-76); Platelet Estimate Normal; RBC Morphology Normal; Total Cells Counted 100
[2020-01-11 12:08] LABS: Erythrocyte Sedimentation Rate 58 mm/hr (0-30)
[2020-01-11 12:31] LABS: Chloride 101 mmol/L (98-107); Potassium 4.3 mmoL/L (3.5-5.1); Sodium 141 mmol/L (136-145)
[2020-01-11 12:34] LABS: Anion Gap 10.3 mEq/L (5-15); Blood Urea Nitrogen 15 mg/dl (7-17); Carbon Dioxide 34 mmol/L (22.0-30.0); Estimated Glomerular Filt Rate 63 ml/min (>60); GFR (African American) 77 ML/MIN (>60)
[2020-01-11 12:35] LABS: Calcium 10.1 mg/dl (8.4-10.2); Glucose 112 mg/dl (74-100)
[2020-01-11 12:40] LABS: C-Reactive Protein 40.5 mg/L (0-4)
== END ==
PROVIDERS: PCP Internal Medicine Adolescent Medicine; Visit Provider Orthopaedic Surgery
DX: S82.891A Other fracture of right lower leg, initial encounter for closed fracture (principal); S82.899 Other fracture of unspecified lower leg
CPT/HCPCS: 36415; 73610; 80048; 85007; 85014; 85018; 85048; 85049; 85651; 86140

== ENCOUNTER → 2020-01-11 11:20 | Outpatient (CLI) | payer BC, SELFPAY | PROVIDERS: Visit Provider Orthopaedic Surgery | DX: S82.891A Other fracture of right lower leg, initial encounter for closed fracture (principal) | CPT/HCPCS: 36415; 80048; 85007; 85014; 85018; 85048; 85049; 85651; 86140 ==

== ENCOUNTER → 2020-01-15 13:04 | Outpatient (CLI) | payer BC, SELFPAY ==
--- NOTE | 2020-01-15 13:09 | XR_ITS ---
PROCEDURE: XR ANKLE RT MIN 3V CLINICAL INDICATION: pain Follow-up fracture COMPARISON: CR XR ANKLE RT 2V from 01/05/2020 CR XR ANKLE RT MIN 3V from 01/11/2020 FINDINGS: External fixator device remains in place stabilizing the comminuted distal fibular fracture with mild lateral displacement of the distal fracture fragment. Mildly distracted fracture also noted at the medial malleolus. There remains good alignment with overall no significant change compared to the previous exam. The medial malleolar fragment is distracted distally by approximately 7 mm. There are small opacities at the ankle region and may be due to something on the patient's skin. IMPRESSION: External fixator device remains in place stabilizing the comminuted distal fibular fracture with mild lateral displacement of the distal fracture fragment. Mildly distracted fracture also noted at the medial malleolus. There remains good alignment with overall no significant change compared to the previous exam. The medial malleolar fragment is distracted distally by approximately 7 mm Dictated by: Keanu Mcgrath MD 01/15/2020 16:01 Keanu Mcgrath MD in [place] 01/15/2020 16:01
== END ==
PROVIDERS: PCP Internal Medicine Adolescent Medicine; Visit Provider Orthopaedic Surgery
DX: S82.891A Other fracture of right lower leg, initial encounter for closed fracture (principal)
CPT/HCPCS: 73610

== ENCOUNTER → 2020-01-18 09:50 | Outpatient (CLI) | payer BC, SELFPAY ==
[2020-01-18 09:52] LABS: MANUAL DIFFERENTIAL MANUAL DIFFERENTIAL (MANUAL DIFF)
[2020-01-18 11:09] LABS: Basophils # 0.1 K/mm3 (0-0.2); Basophils % 1.1 % (0.1-2.0); Eosinophils # 0.2 K/mm3 (0.0-0.4); Hematocrit 44.8 % (37.0-47.0); Hemoglobin 14.7 g/dL (12.2-16.2); Lymphocytes # 1.4 K/mm3 (0.7-4.5); Mean Corpuscular HGB Conc 32.9 g/dL (31.8-35.4); Mean Corpuscular Hemoglobin 29.9 pg (27.0-31.2); Mean Corpuscular Volume 91.1 fl (81-99); Mean Platelet Volume 6.8 fl (7.4-10.4); Monocytes # 0.7 K/mm3 (0.1-1.0); Monocytes % 7.8 % (1.7-9.3); Neutrophils # 6.9 K/mm3 (1.8-7.8); Neutrophils % 74.2 % (37.0-80.0); Platelet Count 549 K/mm3 (142-424); Red Blood Count 4.92 M/mm3 (4.20-5.40); Red Cell Distribution Width 13.5 % (11.5-17.5); White Blood Count 9.3 K/mm3 (4.8-10.8)
[2020-01-18 11:46] LABS: Erythrocyte Sedimentation Rate 26 mm/hr (0-30)
[2020-01-18 11:52] LABS: Chloride 103 mmol/L (98-107)
[2020-01-18 11:53] LABS: Potassium 4.4 mmoL/L (3.5-5.1); Sodium 141 mmol/L (136-145)
[2020-01-18 11:55] LABS: Alanine Aminotransferase 22 U/L (12-78); Alkaline Phosphatase 163 U/L (38-126); Aspartate Amino Transferase 27 U/L (14-36); Bilirubin,Total 0.7 mg/dl (0.2-1.3); Blood Urea Nitrogen 18 mg/dl (7-17); Estimated Glomerular Filt Rate 46 ml/min (>60); GFR (African American) 55 ML/MIN (>60)
[2020-01-18 11:56] LABS: Albumin Level 3.9 g/dl (3.5-5.0); Albumin/Globulin Ratio 1.4 (1.1-1.8); Anion Gap 16.4 mEq/L (5-15); Calcium 10.2 mg/dl (8.4-10.2); Carbon Dioxide 26 mmol/L (22.0-30.0); Globulin 2.7 g/dL (1.3-3.2); Glucose 134 mg/dl (74-100); Total Protein,Serum 6.6 g/dl (6.3-8.2)
[2020-01-18 12:01] LABS: C-Reactive Protein 7.7 mg/L (0-4)
[2020-01-18 12:15] LABS: Coronavirus 19 IgG Antibody Negative (Negative); Coronavirus 19 IgM Antibody Negative (Negative)
[2020-01-18 12:39] LABS: Eosinophils % 4 % (0-3); Lymphocytes % 23 % (10-50); Monocytes % 4 % (2-9); Neutrophils % 69 % (42-76); Platelet Estimate Marked Increase; RBC Morphology Normal; Total Cells Counted 100
== END ==
PROVIDERS: Visit Provider Orthopaedic Surgery
DX: S82.891A Other fracture of right lower leg, initial encounter for closed fracture (principal); S82.899 Other fracture of unspecified lower leg
CPT/HCPCS: 36415; 80053; 85007; 85014; 85018; 85048; 85049; 85651; 86140; 86328

== ENCOUNTER 2020-01-19 11:43 | Day surgery (SDC) | payer BC, SELFPAY ==
[2020-01-18 12:42] VITALS: BMI 33.6
[2020-01-19] VITALS (12 sets, daily range): BP systolic 110–133; BP diastolic 56–76; PULSE 83–96; RESP 15–18; TEMP 36.4–43; O2SAT 90–98
--- NOTE | 2020-01-19 13:16 | P.PN_ITS ---
[facility] Anesthesia Checklist - Structural Data Admitted From: Home Planned Operative Procedure/s: orif r ankle Consent for Planned Operative Procedure(s) Verified: Yes - Additional verifications Anesthesia Reactions: No Hx Blood Transfusions: No Blood Transfusion Reaction: No - Airway Assessment C-Spine Mobility Assessed: Yes TMJ Mobility Assessed: Yes Dentition: Good Dentition - Neurological Assessment Level of Consciousness: Awake, Alert, Appropriate - Anesthesia Plan Anesthesia Risk discussed: Yes Anesthesia Plan: Verified ASA Class: II Anesthesia Type: General w/block [facility] History I have reviewed the patient's past medical history: Yes Medical History: Reports:: Depression, Hyperlipidemia, Hypertension Denies:: Cancer, Diabetes Mellitus Type 1, Diabetes Mellitus Type 2, Internal Pacemaker, MRSA, Seizures *Have you ever received a pneumonia vaccine?: No *Have you received a flu vaccine this season?: No Other Medical History: Reports: Arthritis. Denies: Blood Transfusion Reaction Anesthesia experience/problems:: none Laterality Cases: Left: Arthroscopy Shoulder, Bilateral: Myringotomy (Ear Tubes) Other Surgeries: Yes: Appendectomy, Cholecystectomy, Colonoscopy, Dilation and Curettage, Hysterectomy-Total, Tubal Ligation, Other. No: Pacemaker Amputation: No Fractures: Yes - *Social History Last grade of school completed: High school graduate Smoking Status: Never smoker Alcohol Intake: current Alcohol Intake Frequency:: holidays/special occasions only Substance Use Type: denies use *Occupational Status:: employed Housing: house Household Members: spouse *Travel in the last 8 weeks: None - Psychiatric History Pschychiatric History:: Reports:: Depression Family Hx:: No significant family history
--- NOTE | 2020-01-19 14:42 | XR_ITS ---
PROCEDURE: XR ANKLE RT 2V CLINICAL INDICATION: ORIF RIGHT ANKLE USING C-ARM GUIDANCE. COMPARISON: No exams were available for comparison FINDINGS: Fluoroscopy time: 4 minutes and 3 seconds Multiple images submitted during the ORIF the of the by malleolar fracture with lateral fibular bone plate, medial malleolar screws, translucent fixator with the tib fib syndesmosis. There is good alignment. IMPRESSION: Good alignment status post ORIF tib fib fracture Dictated by: Keanu Mcgrath MD 01/20/2020 05:29 Keanu Mcgrath MD in [place] 01/20/2020 05:29
[2020-01-19 15:44] LABS: Microscopic,Cath URINE MICROSCOPIC (MICROSCOPIC)
[2020-01-19 18:41] LABS: Appearance,Urine/Cath CLEAR (Clear); Bilirubin,Cath Negative (Negative); Blood, Urine/Cath Negative (Negative); Color,Urine/Cath YELLOW (Yellow); Glucose,Urine/Cath (UA) Negative (Negative); Ketones,Urine/Cath Negative (Negative); Leukocyte Esterase,Cath Negative (Negative); Nitrate,Cath Negative (Negative); Protein,Urine/Cath Negative (Negative); Specific Gravity, Urine/Cath 1.025 (1.005-1.030); Urobilinogen,Cath 0.2 EU/dl (0.2)
--- NOTE | 2020-01-19 19:18 | P.PN_ITS ---
[facility] Anesthesia Record Part I Intake, IV Amount: 1,500 Estimated blood loss (mL): 25 Urine output (mL): 150 Blood Products used (#): none Blood Pressure: 123/56 SaO2: 96 Pulse Rate: 96 Respiratory Rate: 15 Temperature: 98.5 F Patient is:: Awake, Drowsy, Nasal O2, Stable Stable to PACU at:: 19:10
--- NOTE | 2020-01-19 19:28 | XR_ITS ---
PROCEDURE: XR ANKLE RT MIN 3V CLINICAL INDICATION: s/p orif r ankle Follow-up fracture/ORIF COMPARISON: CR XR ANKLE RT 2V from 01/05/2020 CR XR ANKLE RT MIN 3V from 01/11/2020 FINDINGS: Posterior splint is in place. Status post ORIF distal tib fib fracture with lateral fibular bone plate and 2 screws within the medial malleolus. Translucent fixator is present with the tibial button at the posterior medial aspect of the distal tibia. Lucencies are present in the proximal tibia and in the calcaneus from previously placed external fixator IMPRESSION: Status post ORIF tib fib fracture with good alignment Dictated by: Keanu Mcgrath MD 01/20/2020 05:47 Keanu Mcgrath MD in [place] 01/20/2020 05:47
[2020-01-19 19:42] LABS: Bacteria,Urine/Cath 3+ /lpf
--- NOTE | 2020-01-19 19:47 | HMH.OPNOTE ---
Date of procedure: 01/19/20 Pre-op Diagnosis:: 1) R ankle open fracture-dislocation; bimalleolar fracture 2) s/p I&D with external fixator application 01/05/20 Post-op Diagnosis:: SAME Procedure performed:: 1) removal of external fixator, R lower extremity 2) open reduction internal fixation (ORIF) R ankle bimalleolar fracture + syndesmotic tightrope fixation 3) R leg wound debridement 4) application of amniotic tissue graft R ankle 5) application of posterior splint R leg Surgeon:: Jeanette Jasmine MD Child Attendant(s):: KRISTOPHER Morales PROPELLER ENGINEER:: Magdiel Witt Anesthesia: GETA, regional Estimated blood loss (mL): 100 Clinical Note:: 64-year-old female status post irrigation and debridement of a grade 2 open fracture of the right ankle with external fixator application performed on 01/05/2020. She sustained a fall at home approximately 1 hour prior to my evaluation of her in the emergency department. When she fell, she was wearing her work boots and jeans, and these were not removed at the scene, so the wound remained clean with no gross contamination. The open wound was located over the medial side of the ankle, measuring approximately 1.3 cm wide by 3 cm long with an additional 2.3 cm extension inferiorly from this original C-shaped wound. There was a separate, proximal/lateral abrasion to the leg which avulsed the superficial epidermal layer and exposed underlying subcutaneous fat; that measured 3.5 x 2.5 cm. The underlying ankle fracture was seen to be a bimalleolar fracture, which was initially dislocated but reduced in the ER, followed by application of a [place] 3 external fixator. She was treated with a full 24 hours of IV antibiotics and was discharged home on oral Keflex. Since returning home she has had home health for dressing changes of her external fixator every other day. She denies any fevers or chills at home, no drainage from her pin sites or wounds. She remains nonweightbearing on the right lower extremity. Mildly increased erythema at her first visit leg to prescription of clindamycin. This, in addition to frequent icing and elevation of the leg, led to a decrease in both swelling and redness. Wrinkle sign appeared in the past few days as well. She appeared appropriate for definitive fixation at this time, and surgery was discussed in detail. I discussed the risks of surgery with the patient, including but not limited to: bleeding, neurovascular damage, infection due to surgery or from previous open fracture, post-traumatic arthritis, persistent pain and/or limp despite surgery. The patient vocalized understanding of the risks and informed consent was obtained. Operative findings:: Vendor: Natalee -- distal fibula fixed laterally with locking bridge plate + cerclage; hydroset used to augment fracture site -- medial malleolus fixed with 2 cannulated screws with washers -- syndesmosis tightrope placed x1 ([employer] SynchFix) -- amniotic membrane graft ([employer] ActiShield) application -- wound debridement superolateral traumatic wound Operative note:: The patient was identified in preoperative holding and the right leg signed by myself. Consent was verified with the patient and all questions answered. She was then seen by anesthesia, and the decision was made to perform a popliteal block with general anesthesia. The block was administered by anesthesia in preoperative holding. The patient was then taken to the OR and placed supine on the operative table. 2 g of Ancef were infused intravenously and general endotracheal anesthesia induced. Once the patient was asleep, SCD was placed on the left lower extremity and all bony prominences well-padded. Timeout was performed, identifying the correct patient, correct procedure, and correct site. Dressings were removed from the right lower extremity and all pin sites on the external fixator thoroughly cleansed. The external fixator was then removed
--- NOTE | 2020-01-19 19:54 | HMH.OPNOTE ---
Date of procedure: 01/19/20 Pre-op Diagnosis:: 1. Right ankle fracture dislocation 2. S/P application of external fixation device on 01/05/20 Post-op Diagnosis:: Same Procedure performed:: 1. Right ankle ORIF 2. Right leg wound debridement 3. Right application of amniotic tissue graft 4. Right application of posterior splint Surgeon:: Jeanette Jasmine Used Car Make Ready Mechanic(s):: Leigh Ann Devine DPM COLD MEAT CHEF:: Magdiel Walker Anesthesia: GETA Estimated blood loss (mL): 50 Clinical Note:: See documentation per Dr. Jasmine. Operative findings:: Comminuted distal fibula fracture fragment. The medial ankle posterior tibial tendon was exposed. There was herniation of the muscle posteriorly. Some fraying to the PT tendon at the level of the ankle fracture with no definitive longitudinal tear noted. There was a wound abrasion noted to the proximal anterior leg with hyper granular tissue and fibrotic slough. It was sharply debrided with a curette through skin into subcutaneous tissue. Post debridement the wound extended through skin into subcutaneous tissue full-thickness and measured approximately 3.5 x 3 x 0.2 cm. No signs of infection to the wound. Operative note:: See op note per Dr. Jasmine. I scrubbed and partway through the case to assist in final reduction and closure. There was a butterfly fragment noted to the distal fibula. Cerclage wire was used to capture the piece of butterfly fragment. Intraoperative fluoroscopy was utilized to check the imaging and deemed to be appropriate and stable. Wounds were flushed. A piece of 4 x 8 cm amniotic graft ([employer] acti shield) was cut in half and inserted between the Endobutton suture and the torn posterior tibial tendon sheath. Another portion was applied into the previous medial malleolar open wound site. The remaining piece of the tendon was inserted over the distal fibula plate to prevent adhesion of the peroneal tendons. Wounds were flushed. Deep and subcutaneous tissue was reapproximated with 2-0 and 3-0 Vicryl. Skin was reapproximated with 3-0 nylon in an interrupted mattress fashion. Skin cleansed. Attention was directed to the wound on the anterior proximal leg. It was sharply debrided with a curette full-thickness. See operative findings for measurement. Xeroform applied to incision and previous pin sites. A right below-knee posterior splint was then applied. Patient was woken from anesthesia with backslash stable neurovascular status intact. Condition: stable Disposition: same day Specimens:: None Complications:: None
--- NOTE | 2020-01-19 20:04 | PC.NURSE ---
1930- rad at bedside getting post-op xrays
--- NOTE | 2020-01-20 07:06 | P.PN_ITS ---
[facility] Anesthesia Record Part II Discharge Time: 19:40 Destination: Surgical Day Care (OP Surgery) PACU nurse assessment reviewed?: Yes Patient Condition:: Good Anesthesia Complications:: None Swallowing reflex intact?: Yes Cyanosis?: No Blood Pressure: 131/65 Pulse Rate: 90 Temperature: 98.5 F Mental Status: Alert & Oriented Pain level:: 0 Nausea and/or vomitting:: None Intake, IV Amount: 0 (Normovolemic)
[2020-01-20 07:10] VITALS: BP 131/65; PULSE 90; TEMP 36.9
== END 2020-01-19 20:43 | disposition home or self-care (01) ==
LOC: OR 11:46
PROVIDERS: PCP Internal Medicine Adolescent Medicine; Visit Provider Orthopaedic Surgery
PROC: (CPT 27814; principal; 2020-01-19 13:45)
DX: W17.89XA Other fall from one level to another, initial encounter; Y92.018 Other place in single-family (private) house as the place of occurrence of the external cause; I10 Essential (primary) hypertension; E78.5 Hyperlipidemia, unspecified; J44.9 Chronic obstructive pulmonary disease, unspecified; Z88.2 Allergy status to sulfonamides; Z88.8 Allergy status to other drugs, medicaments and biological substances; Z79.899 Other long term (current) drug therapy; S82.841B Displaced bimalleolar fracture of right lower leg, initial encounter for open fracture type I or II
CPT/HCPCS: 27814; Q4211; C5275; 73600; 73610; 76000; 81001; 87086; 96374; C1713; C1776; J2405

== ENCOUNTER → 2020-01-25 15:15 | Outpatient (CLI) | payer BC, SELFPAY ==
--- NOTE | 2020-01-25 15:19 | XR_ITS ---
PROCEDURE: XR ANKLE RT MIN 3V CLINICAL INDICATION: SP RT ANKLE POSTOP Follow-up ORIF COMPARISON: CR XR ANKLE RT 2V from 01/05/2020 CR XR ANKLE RT MIN 3V from 01/11/2020 CR XR ANKLE RT MIN 3V from 01/15/2020 CR XR ANKLE RT MIN 3V from 01/19/2020 FINDINGS: Has been prior ORIF of the ankle. Lateral bone plate at the distal fibula once again noted with a cerclage wire with good alignment. Two screws stabilize the medial malleolar fragment. Translucent fixator is present at the tib fib region. The ankle mortise appears preserved. There is a lucency through the calcaneus from an older external fixator device. Posterior splint is in place. IMPRESSION: No change good alignment status post ORIF distal tib fib fracture as detailed above Dictated by: Keanu Mcgrath MD 01/25/2020 16:11 Keanu Mcgrath MD in [place] 01/25/2020 16:11
== END ==
PROVIDERS: PCP Internal Medicine Adolescent Medicine; Visit Provider Orthopaedic Surgery
DX: S82.891A Other fracture of right lower leg, initial encounter for closed fracture (principal); S82.899 Other fracture of unspecified lower leg; Z09 Encounter for follow-up examination after completed treatment for conditions other than malignant neoplasm
CPT/HCPCS: 73610

== ENCOUNTER → 2020-02-01 13:09 | Outpatient (CLI) | payer BC, SELFPAY ==
[2020-02-01 14:29] LABS: Chloride 102 mmol/L (98-107)
[2020-02-01 14:30] LABS: Potassium 4.4 mmoL/L (3.5-5.1); Sodium 137 mmol/L (136-145)
[2020-02-01 14:33] LABS: Anion Gap 12.4 mEq/L (5-15); Blood Urea Nitrogen 19 mg/dl (7-17); Calcium 10.2 mg/dl (8.4-10.2); Carbon Dioxide 27 mmol/L (22.0-30.0); Estimated Glomerular Filt Rate 50 ml/min (>60); GFR (African American) 61 ML/MIN (>60); Glucose 113 mg/dl (74-100)
[2020-02-01 14:39] LABS: C-Reactive Protein 1.8 mg/L (0-4)
[2020-02-01 15:01] LABS: Erythrocyte Sedimentation Rate 13 mm/hr (0-30)
[2020-02-01 15:06] LABS: Basophils # 0.1 K/mm3 (0-0.2); Basophils % 1.1 % (0.1-2.0); Eosinophils # 0.4 K/mm3 (0.0-0.4); Eosinophils % 3.1 % (0.1-12.0); Hematocrit 45.8 % (37.0-47.0); Hemoglobin 14.4 g/dL (12.2-16.2); Lymphocytes # 1.8 K/mm3 (0.7-4.5); Lymphocytes % 15.7 % (10-50); Mean Corpuscular HGB Conc 31.5 g/dL (31.8-35.4); Mean Corpuscular Hemoglobin 28.6 pg (27.0-31.2); Mean Platelet Volume 7.4 fl (7.4-10.4); Monocytes # 0.9 K/mm3 (0.1-1.0); Monocytes % 7.7 % (1.7-9.3); Neutrophils # 8.3 K/mm3 (1.8-7.8); Neutrophils % 72.5 % (37.0-80.0); Platelet Count 576 K/mm3 (142-424); Red Blood Count 5.04 M/mm3 (4.20-5.40); Red Cell Distribution Width 13.9 % (11.5-17.5); White Blood Count 11.5 K/mm3 (4.8-10.8)
== END ==
PROVIDERS: Visit Provider Orthopaedic Surgery
DX: S82.891A Other fracture of right lower leg, initial encounter for closed fracture (principal); S82.899 Other fracture of unspecified lower leg
CPT/HCPCS: 36415; 80048; 85025; 85651; 86140

== ENCOUNTER → 2020-02-15 13:32 | Outpatient (CLI) | payer BC, SELFPAY ==
--- NOTE | 2020-02-15 13:36 | XR_ITS ---
PROCEDURE: XR ANKLE RT MIN 3V CLINICAL INDICATION: RT ankle FX; dos:01/19/20 Follow-up fracture COMPARISON: CR XR ANKLE RT MIN 3V from 01/11/2020 CR XR ANKLE RT MIN 3V from 01/15/2020 CR XR ANKLE RT MIN 3V from 01/19/2020 CR XR ANKLE RT MIN 3V from 01/25/2020 FINDINGS: Status post ORIF distal tib fib. Lateral fibular bone plate remains in good position with good alignment. Two screws are in the medial malleolus which is also in good alignment. Status post syndesmosis repair with preserved mortise. There is a posterior splint in place. Lucency is present in the calcaneus and could be due to prior external fixator placement IMPRESSION: Good alignment status post ORIF distal tib fib Dictated by: Keanu Mcgrath MD 02/15/2020 15:45 Keanu Mcgrath MD in [place] 02/15/2020 15:45
== END ==
PROVIDERS: PCP Internal Medicine Adolescent Medicine; Visit Provider Orthopaedic Surgery
DX: S82.891A Other fracture of right lower leg, initial encounter for closed fracture (principal); S82.899 Other fracture of unspecified lower leg
CPT/HCPCS: 73610

== ENCOUNTER → 2020-03-11 09:03 | Outpatient (CLI) | payer BC, SELFPAY ==
--- NOTE | 2020-03-11 09:08 | XR_ITS ---
PROCEDURE: XR ANKLE RT MIN 3V CLINICAL INDICATION: ex-fix removal + ORIF R ankle 01/19/20 Follow-up surgery COMPARISON: CR XR ANKLE RT MIN 3V from 01/15/2020 CR XR ANKLE RT MIN 3V from 01/19/2020 CR XR ANKLE RT MIN 3V from 01/25/2020 CR XR ANKLE RT MIN 3V from 02/15/2020 FINDINGS: No change status post distal tib fib with lateral fibular bone plate with multiple cortical screws and cerclage wire and 2 medial malleolar screws as well as translucent fixator at the tib fib synchondrosis. Ankle mortise is preserved. Fracture line still visible at the medial malleolar region and at the distal fibula. IMPRESSION: Good alignment, no change status post ORIF distal tib fib Dictated by: Keanu Mcgrath MD 03/11/2020 09:41 Keanu Mcgrath MD in [place] 03/11/2020 09:41
== END ==
PROVIDERS: PCP Internal Medicine Adolescent Medicine; Visit Provider Orthopaedic Surgery
DX: S82.891A Other fracture of right lower leg, initial encounter for closed fracture (principal); S82.899 Other fracture of unspecified lower leg
CPT/HCPCS: 73610

== ENCOUNTER 2020-03-11 11:19 | Outpatient (RCR) | payer BC, SELFPAY | END 2020-03-11 12:00 | disposition home or self-care (01) | LOC: PT 11:19 | PROVIDERS: Visit Provider Orthopaedic Surgery | DX: M25.572 Pain in left ankle and joints of left foot (principal) ==

== ENCOUNTER → 2020-04-01 07:55 | Outpatient (CLI) | payer BC, SELFPAY ==
--- NOTE | 2020-04-01 07:59 | XR_ITS ---
PROCEDURE: XR ANKLE WT BEARING RT MIN 3V CLINICAL INDICATION: s/p ORIF R ankle 01/19/20 COMPARISON: CR XR ANKLE RT MIN 3V from 01/19/2020 CR XR ANKLE RT MIN 3V from 01/25/2020 CR XR ANKLE RT MIN 3V from 02/15/2020 CR XR ANKLE RT MIN 3V from 03/11/2020 FINDINGS: Follow-up ORIF lateral fibular bone plate and 2 screws within the medial malleolar region. Status post syndesmosis repair. Fracture line at the medial malleolus is still visible. There is a nonspecific small calcific density along the neck of the talus anteriorly. IMPRESSION: No change good alignment status post ORIF distal tib fib Dictated by: Keanu Mcgrath MD 04/01/2020 10:44 Keanu Mcgrath MD in [place] 04/01/2020 10:44
== END ==
PROVIDERS: PCP Internal Medicine Adolescent Medicine; Visit Provider Orthopaedic Surgery
DX: S82.891A Other fracture of right lower leg, initial encounter for closed fracture (principal); S82.899 Other fracture of unspecified lower leg
CPT/HCPCS: 73610

== ENCOUNTER 2020-04-01 09:38 | Outpatient (RCR) | payer BC, SELFPAY | END 2020-04-01 10:41 | disposition home or self-care (01) | LOC: PT 09:38 | PROVIDERS: Visit Provider Orthopaedic Surgery | DX: S82.891B Other fracture of right lower leg, initial encounter for open fracture type I or II (principal); S82.891E Other fracture of right lower leg, subsequent encounter for open fracture type I or II with routine healing | CPT/HCPCS: 97760 ==

== ENCOUNTER → 2020-05-02 08:30 | Outpatient (CLI) | payer BC, SELFPAY ==
--- NOTE | 2020-05-02 08:34 | XR_ITS ---
PROCEDURE: XR ANKLE WT BEARING RT MIN 3V CLINICAL INDICATION: ORIF R ankle 01/19/20 Follow-up fracture/ COMPARISON: CR XR ANKLE RT MIN 3V from 01/25/2020 CR XR ANKLE RT MIN 3V from 02/15/2020 CR XR ANKLE RT MIN 3V from 03/11/2020 CR XR ANKLE WT BEARING RT MIN 3V from 04/01/2020 FINDINGS: Good alignment status post ORIF with lateral fibular bone plate with multiple cortical screws and 2 longer cortical screws within the medial malleolar region. Syndesmotic repair also present. IMPRESSION: Good alignment status post ORIF distal tib fib fracture Dictated by: Keanu Mcgrath MD 05/02/2020 14:50 Keanu Mcgrath MD in [place] 05/02/2020 14:50
== END ==
PROVIDERS: PCP Internal Medicine Adolescent Medicine; Visit Provider Orthopaedic Surgery
DX: S82.891A Other fracture of right lower leg, initial encounter for closed fracture (principal)
CPT/HCPCS: 73610

== ENCOUNTER 2020-06-13 10:00 | Outpatient (RCR) | payer BC, SELFPAY ==
--- NOTE | 2020-05-10 12:34 | HMH.PTOPEV ---
PT Outpatient Evaluation Rehab PT Outpatient Evaluation Start: 05/10/20 12:09 Freq: Status: Active Protocol: Document 05/10/20 12:09 [email or web address] (Rec: 05/10/20 12:34 PDESEROUX [id number]) Electronically Signed By Vickey Quintanilla, PT 05/10/20 12:09 Outpatient Therapy Subjective History Subjective History Pt. is a 64 year old female who presents to Outpatient PT clinic w/ complaints of chronic and intermittent RLE ankle/ft. P! and weakness s/p ORIF distal tib./fib. fx. of traumatic onset on 01/05/20. Pt. reports having a compound fx. after falling off of her back porch d/t balance deficits from an inner ear infection at that time. Pt. reports having 2 surgeries, first on 01/05/20 and the second being on for my hardware. Recent diagnostic imaging indicates good alignment s/p ORIF distal tib./fib. fracture. Pt. reports having 3 months of Home Health Physical Therapy. Pt. currently reports she is to wean from her CAM bt. walker to her ankle brace according to her Surgeon. Pt. RTMD in 2020. Pt. reports she has currently been ambulating in her ankle brace at home for 1 month, but ambulates in the CAM bt. walker when she leaves the house. Current medications include [place], Lipitor, Baby Aspirin, and Welbutrin. PMH includes Hypertension, Hyperlipidemia, and LUE shldr. RC repair. Chief Complaint Pain,Stiff,Swelling,Weakness Symptom Type Ache,Sharp,Dull,Stabbing Symptoms Relieved By Rest/Positioning,Ice,Brace/ Support Symptoms Aggravated By Standing,Physical Activity, Walking,Lifting Prior Functional Limitations None Current Functional Limitations Lifting,Housework,Standing, Squatting,Recreation Activity,
== END 2020-06-15 08:31 | disposition home or self-care (01) ==
LOC: PT.CARL 10:00
PROVIDERS: PCP Internal Medicine Adolescent Medicine; Visit Provider Orthopaedic Surgery
DX: S82.891E Other fracture of right lower leg, subsequent encounter for open fracture type I or II with routine healing
CPT/HCPCS: 97010; 97014; 97110; 97112; 97163; G0283

== ENCOUNTER → 2020-06-13 13:18 | Outpatient (CLI) | payer BC, SELFPAY ==
--- NOTE | 2020-06-13 13:21 | XR_ITS ---
PROCEDURE: XR ANKLE WT BEARING RT MIN 3V CLINICAL INDICATION: s/p ORIF RT ankle Follow-up surgery COMPARISON: CR XR ANKLE RT MIN 3V from 02/15/2020 CR XR ANKLE RT MIN 3V from 03/11/2020 CR XR ANKLE WT BEARING RT MIN 3V from 04/01/2020 CR XR ANKLE WT BEARING RT MIN 3V from 05/02/2020 FINDINGS: Status post ORIF of the distal tib fib. Lateral fibular bone plate with cerclage wire and translucent fixator of the distal tib fib remain in place as well as 2 cortical screws in the medial malleolar region. There is good alignment of the fracture fragments. Medial malleolar fracture line is still visible. Small calcific density noted along the neck of the talus anteriorly nonspecific. IMPRESSION: Postsurgical changes with good alignment as detailed above Dictated by: Keanu Mcgrath MD 06/13/2020 16:43 Keanu Mcgrath MD in [place] 06/13/2020 16:43
== END ==
PROVIDERS: PCP Internal Medicine Adolescent Medicine; Visit Provider Orthopaedic Surgery
DX: S82.891A Other fracture of right lower leg, initial encounter for closed fracture (principal); S82.899 Other fracture of unspecified lower leg
CPT/HCPCS: 73610

== ENCOUNTER → 2020-12-23 14:32 | Outpatient (CLI) | payer OTHER, SELFPAY ==
--- NOTE | 2020-12-23 14:41 | XR_ITS ---
PROCEDURE: XR ANKLE RT MIN 3V CLINICAL INDICATION: ACUTE RT ANKLE PAIN post ORIF distal tibial and fibular fractures, stepped in hole 1 month ago still having pain COMPARISON: CR XR ANKLE WT BEARING RT MIN 3V from 06/13/2020 FINDINGS: The lung distal fibular metallic plate is noted stable and unchanged in appearance from the previous exam 06/13/2020 fixated by multiple threaded horizontally oriented screws. Both the medial malleolar and distal fibular fractures appear well healed. I see no new fracture. The overall ankle mortise appears grossly normal. The talus and calcaneus appear intact, there is small calcaneal enthesophytes at insertion of Achilles tendon and plantar tendon. There is minor diffuse soft tissue swelling medially. IMPRESSION: No definite acute findings other than mild soft tissue swelling medially. Dictated by: Dr. Reese Maya MD 12/23/2020 14:57 Dr. Reese Maya MD in [place] 12/23/2020 14:57
== END ==
PROVIDERS: PCP Internal Medicine Adolescent Medicine; Visit Provider Internal Medicine Adolescent Medicine
DX: M25.571 Pain in right ankle and joints of right foot (principal)
CPT/HCPCS: 73610

== ENCOUNTER → 2021-02-16 18:12 | Outpatient (CLI) | payer OTHER, SELFPAY ==
[2021-02-16 18:57] LABS: Basophils # 0.1 K/mm3 (0-0.2); Basophils % 1.1 % (0.1-2.0); Eosinophils # 0.3 K/mm3 (0.0-0.4); Eosinophils % 3.9 % (0.1-12.0); Hematocrit 46.6 % (37.0-47.0); Hemoglobin 15.2 g/dL (12.2-16.2); Lymphocytes # 1.4 K/mm3 (0.7-4.5); Lymphocytes % 20.1 % (10-50); Mean Corpuscular HGB Conc 32.5 g/dL (31.8-35.4); Mean Corpuscular Hemoglobin 28.8 pg (27.0-31.2); Mean Corpuscular Volume 88.6 fl (81-99); Mean Platelet Volume 8.3 fl (7.4-10.4); Monocytes # 0.5 K/mm3 (0.1-1.0); Monocytes % 6.4 % (1.7-9.3); Neutrophils # 4.9 K/mm3 (1.8-7.8); Neutrophils % 68.5 % (37.0-80.0); Platelet Count 362 K/mm3 (142-424); Red Blood Count 5.27 M/mm3 (4.20-5.40); Red Cell Distribution Width 13.8 % (11.5-17.5); White Blood Count 7.1 K/mm3 (4.8-10.8)
[2021-02-16 19:19] LABS: Alanine Aminotransferase 46 U/L (12-78); Albumin/Globulin Ratio 1.5 (1.1-1.8); Alkaline Phosphatase 145 U/L (38-126); Anion Gap 14.6 mEq/L (5-15); Aspartate Amino Transferase 51 U/L (14-36); Blood Urea Nitrogen 15 mg/dl (7-17); Calcium 9.7 mg/dl (8.4-10.2); Carbon Dioxide 26 mmol/L (22.0-30.0); Chloride 105 mmol/L (98-107); Chol/HDL Ratio 6.9 (1-3.5); Cholesterol 222 mg/dl (140-200); Estimated Glomerular Filt Rate 56 ml/min (>60); GFR (African American) 68 ML/MIN (>60); Globulin 2.7 g/dL (1.3-3.2); Glucose 119 mg/dl (74-100); HDL Cholesterol 32 mg/dl (40-60); Sodium 139 mmol/L (136-145); Total Protein,Serum 6.7 g/dl (6.3-8.2)
[2021-02-16 19:30] LABS: C-Reactive Protein 3.1 mg/L (0-4); Direct LDL Cholesterol 63.99 mg/dL (100-129)
[2021-02-16 19:47] LABS: Triglycerides 663 mg/dl (30-150)
[2021-02-16 20:01] LABS: Potassium 6.6 mmoL/L (3.5-5.1)
[2021-02-16 20:10] LABS: Erythrocyte Sedimentation Rate 15 mm/hr (0-30)
[2021-02-16 20:42] LABS: 25-OH Vitamin D, Total 31.7 ng/mL (30-100)
[2021-02-16 21:25] LABS: Hemoglobin A1C 6.2 % (4.0-6.0)
[2021-02-18 09:12] LABS: RA Latex Turbid. <10.0 IU/mL (0.0-13.9)
[2021-02-19 02:55] LABS: Anti-Cyclic Citrullinated Pept 7 units (0-19)
== END ==
PROVIDERS: Visit Provider Internal Medicine Adolescent Medicine
DX: I10 Essential (primary) hypertension (principal); E78.2 Mixed hyperlipidemia; E55.9 Vitamin D deficiency, unspecified; M15.0 Primary generalized (osteo)arthritis; M19.041 Primary osteoarthritis, right hand
CPT/HCPCS: 80053; 80061; 82306; 83036; 85025; 85651; 86140; 86200; 86431

== ENCOUNTER → 2021-11-18 11:08 | Outpatient (CLI) | payer OTHER, SELFPAY ==
[2021-11-18 11:37] LABS: Chloride 107 mmol/L (98-107); Sodium 139 mmol/L (136-145)
[2021-11-18 11:40] LABS: Blood Urea Nitrogen 20 mg/dl (7-17)
[2021-11-18 11:41] LABS: Calcium 9.5 mg/dl (8.4-10.2); Carbon Dioxide 26 mmol/L (22.0-30.0); Estimated Glomerular Filt Rate 50 ml/min (>60); GFR (African American) 61 ML/MIN (>60); Glucose 137 mg/dl (74-100)
== END ==
PROVIDERS: PCP Nurse Practitioner Family; Visit Provider Nurse Practitioner Family
DX: E87.5 Hyperkalemia (principal)
CPT/HCPCS: 36415; 80048

== ENCOUNTER → 2022-01-12 13:12 | Outpatient (CLI) | payer OTHER, SELFPAY | PROVIDERS: Visit Provider Urology | DX: N39.0 Urinary tract infection, site not specified (principal) | CPT/HCPCS: 87086 ==

== ENCOUNTER → 2022-06-20 15:07 | Outpatient (CLI) | payer OTHER, SELFPAY ==
--- NOTE | 2022-06-20 15:11 | MM_ITS ---
PROCEDURE INFORMATION: Exam: MG Bilateral Screening 3D Mammography Exam date and time: 06/20/2022 3:03 PM Age: 66 years old Clinical indication: Screening mammogram TECHNIQUE: Imaging protocol: Bilateral Screening tomosynthesis and 2D mammography including computer-aided detection (CAD) when performed. COMPARISON: 1. MG MM DIG SCREENING MAMM BI W/CAD 10/13/2019 3:53 PM 2. MG DMSB DIG MAMM-SCREEN DANIEL W/CAD 04/17/2017 10:08 AM 3. MG DIGMAMMS MAMMOGRAM SCREEN-CROWN IRONER OPERATOR N/C 08/14/2011 10:04 AM 4. MG DIGMAMMS MAMMOGRAM SCREEN-CROWN IRONER OPERATOR N/C 11/24/2009 10:04 AM FINDINGS: MAMMOGRAPHY: Breast composition: There are scattered areas of fibroglandular density. Mass: None. Architectural distortion: No new or suspicious architectural distortion. Calcifications: Stable benign-appearing calcifications are present. No new or suspicious cluster of microcalcifications have developed. Asymmetric density: No new or suspicious asymmetric density is present Skin thickening: None. Axillary adenopathy: None. IMPRESSION: No mammographic evidence of malignancy. Recommend annual screening mammography unless otherwise clinically indicated. ASSESSMENT: BI-RADS category 2: Benign
== END ==
PROVIDERS: Visit Provider Internal Medicine Adolescent Medicine
DX: Z12.31 Encounter for screening mammogram for malignant neoplasm of breast (principal)
CPT/HCPCS: 77063; 77067

== ENCOUNTER → 2022-07-26 11:46 | Outpatient (CLI) | payer OTHER, SELFPAY ==
[2022-07-26 13:24] VITALS: BMI 33.5
== END ==
PROVIDERS: PCP Internal Medicine Adolescent Medicine; Visit Provider Nurse Practitioner Family
DX: Z71.3 Dietary counseling and surveillance (principal); E11.9 Type 2 diabetes mellitus without complications
CPT/HCPCS: 97802

== ENCOUNTER 2022-09-05 08:00 | Outpatient (RCR) | payer OTHER, SELFPAY ==
--- NOTE | 2022-08-07 14:08 | HMH.PTOPEV ---
PT Outpatient Evaluation Rehab PT Outpatient Evaluation Start: 08/07/22 12:50 Freq: Status: Active Protocol: Document 08/07/22 12:50 PDESERMARIBELL (Rec: 08/07/22 14:07 [email or web address] [id number]) E-signed By Vickey Quintanilla, PT Outpatient Therapy Subjective History Subjective History Pt. is a 66 year old female whom presents to [facility] Outpatient Physical Therapy Services in [place] for the initial evaluation this date( 08/07/22) w/ c/o subacute on chronic and constant R-sided thoracolumbar P!, stiffness, and spasm of insidious onset a few months ago. Pt. reports having a chronic history of LBP!, however, reports current symptoms originating a few months ago. Pt. reports insidious onset, however, states been running the mower, weedeater, and Dr. Zaw more often. Pt. describes symptoms as a dull ache that worsens w/ running the chainsaw, weedeater, and mower. Pt. reports having some symptom relief w/ prescribed medications and using a heating pad. Pt. denies having any recent diagnostic imaging nor injections for current complaint. Pt. denies numbness /tingling into neither BLE nor feet/digits. Pt. denies history of pacemaker, denies history of cancer(self). Current medications include Flexiril, Lipitor, Welbutrin, Singulair, and Flonase. PMH includes borderline DM-II, Hypertension, S/P LUE shldr. RC repair, S/P RLE ankle reconstruction, Cholecystectomy, hysterectomy, and history of renal calculi. Chief Complaint Pain,Spasms,Stiff,Weakness Symptom Type Ache,Dull Symptoms Relieved By Rest/Positioning,Heat, Prescription Meds Symptoms Aggravated By Bending/Stooping
== END 2022-10-03 17:22 | disposition home or self-care (01) ==
LOC: PT 08:00
PROVIDERS: PCP Internal Medicine Adolescent Medicine; Visit Provider Nurse Practitioner Family
DX: S29.012A Strain of muscle and tendon of back wall of thorax, initial encounter (principal)
CPT/HCPCS: 97010; 97014; 97035; 97110; 97140; 97163; 97530; G0283

== ENCOUNTER 2024-08-12 08:49 | Outpatient (CLI) | payer MEDICARE, SELFPAY ==
--- OUTSIDE RECORDS SUMMARY | 2024-08-12 08:51 | XMS_ITS | Data Portability ---
Author Organization [facility] ALEX Bolivar ADMIN Address [address] [place] [id number] Assessment No assessment recorded. Plan of Treatment Reminders Order Date Submit Date Provider Last Modified By Organization Details Last Modified Time Details Appointments None recorded. Lab urinalysis , dipstick [email or web address], [address], 12:23:24 Referral None recorded. Procedures None recorded. Surgeries None recorded. Imaging None recorded. Medication Orders None recorded. Patient TargetsNo targets recorded. Patient InstructionsNo instructions recorded. Reason for Referral None Reported. Results Created Date Observation Date Name Description Value Unit Range Abnormal Flag Note LastModifiedBy Organization Detail LastModifiedTime 02/19/2002/19/2024 urina lysis , dipst ick Leukocytes (reference range) small Not Available [address], [address], 02/19/2024 11:24:24 02/19/20 24 02/19/2024 urina lysis , dipst ick Nitrite (reference range:) negati ve Not Available [facility], [address], 02/19/2024 11:24:24 02/19/20 24 02/19/2024 urina lysis , dipst ick Urobilinogen (reference range) 0.2 Not Available [address], [address], 02/19/2024 11:24:24 02/19/2002/19/2024 urina lysis , dipst ick Protein (reference range) negati ve Not Available [address], [address], 02/19/2024 11:24:24 02/19/2002/19/2024 urina lysis , dipst ick pH (reference range 5-8.5) 5.5 Not Available [address], [address], 02/19/2024 11:24:24 02/19/2002/19/2024 urina lysis , dipst ick Blood (reference range:) negati ve Not Available [address], [address], 02/19/2024 11:24:24 02/19/2002/19/2024 urina lysis , dipst ick Specific [place] (reference range) 1.015 Not Available [address], [address], 02/19/2024 11:24:24 02/19/2002/19/2024 urina lysis , dipst ick Ketone (reference range) negati ve Not Available [address], [address], 02/19/2024 11:24:24 02/19/2002/19/2024 urina lysis , dipst ick Bilirubin (reference range) negati ve Not Available [address], [address], 02/19/2024 11:24:24 02/19/2002/19/2024 urina lysis , dipst ick Glucose (reference range) negati ve Not Available [address], [address], 02/19/2024 11:24:24 Result Notes None recorded. Problems Name Problem SNOMED Code Status Onset Date Resolution Date Notes Provider Name and Address Organization Details Recorded Time Diabetes mellitus 94804823 Active Norma martínez, RDAHA - [facility] [place] 10:48:55 Seasonal allergy 571064584 Active Norma martínez, RADHA - [facility] - [facility] & [place] 10:49:01 Kidney stone 43746844 Active Norma martínez, RADHA - [facility] - [facility] & [place] 10:49:11 Arthritis 4328696 Active Norma martínez, RADHA - [facility] - [place] & [place] 10:49:19 Problem Notes None recorded. Procedures Surgical History Date Name Laterality Status Provider Name and Address Organization Details Recorded Time 02/19/20 24 Urethral Dilation (female) completed Milo Mcgregor Jr, MD [address] [place] [address], [address], [place], [address] RAD[facility] - MARY ANN[facility] - [place] & [place] 02/19/2024 12:56:58 ureteroscopy completed Norma Chandler LPNT - [place] & [place] 02/19/2024 10:50:04 procedure on ankle completed Norma Chandler LPNT [facility] & [place] 02/19/2024 10:50:10 Total Hysterectomy completed Norma GARCIA - [facility] - [place] & [place] 02/19/2024 10:50:16 Imaging Results None recorded. Procedure Notes None recorded. Medical Equipment None Reported. Allergies Allergen ID Allergen Name Allergen Category Reaction Reaction Severity Criticality Documentation Date Start Date Code Code System Note Provider Name and Address Organization Details Recorded Time 509575 Substance with sulfonami de structure and antibacte rial mechanism of action (substanc e) medicatio n Not available Not available Not available 02/19/2024 15965 [id number] SNOMED Norma martínez, RADHA - [facility] - [facility] & [place] 10:44:12 Medications Name Sig Start Date Stop Date Status Note LastModified by Organization Details LastModified Time cyclobenzaprine 10 mg tablet active Not Available Not Available Not Available atorvastatin 80 mg tablet active Not Available Not Available No t Available fluconazole 150 mg tablet active Not Available Not Available No t Available lisinopril 20 mg tablet active Not Available Not Available No t Available metronidazole 500 mg tablet active Not Available Not Availabl e Not Available amlodipine 5 mg tablet TAKE 1 TABLET BY MOUTH ONCE DAILY active Not Available Not Available No t Available indomethacin 50 mg capsule TAKE 1 CAPSULE BY MOUTH THREE TIMES DAILY NEEDED FOR GOUT PAIN FOR 5 DAYS active Not Available Not Available No t Available montelukast 10 mg tablet active Not Available Not Available No t Available estradiol 0.01% (0.1 mg/gram) vaginal cream active Not Available Not Availabl e Not Available albuterol sulfate HFA 90 mcg/actuation aerosol inhaler active Not Available Not Availa ble Not Available colchicine 0.6 mg tablet active Not Available Not Available No t Available fluticasone propionate 50 mcg/actuation nasal spray,suspensio n active Not Available Not Available Not Available amoxicillin 875 mg-potassium clavulanate 125 mg tablet active Not Available Not Available No t Available bupropion HCl XL 300 mg 24 hr tablet, extended release active Not Available Not Available Not Available nitrofurantoin monohydrate/mac rocrystals 100 mg capsule TAKE 1 CAPSULE BY MOUTH TWICE DAILY FOR 7 DAYS active Not Available Not Available No t Available vilazodone 40 mg tablet active Not Available Not Available No t Available Ozempic 1 mg/dose (4 mg/3 mL) subcutaneous pen injector active Not Available Not Available Not Available Ozempic 0.25 mg or 0.5 mg (2 mg/3 mL) subcutaneous pen injector active Not Available Not Available Not Available Vitals Date Recorded Body height Body mass index (BMI) Body weight Body temperature Provider Name and Address Organization Details Last Updated DateTime 02/19/2024 160.02 cm 26 kg/m2 75847.08 g 97.9 [degF] Norma GARCIA [facility] & [place] 02/19/2024 10:51:47 Social History Question Answer Notes LastModified by Organizat ion Details LastModified Time Tobacco Smoking Status Never Smoker Norma martínez, [facility] & [place] 02/19/2024 10:49:53 What Is Your Level Of Alcohol Consumption? None [email or web address] Information not available 02/19/2024 Sex: Unknown Functional Status None recorded. Mental Status None recorded. Family History Relationship Description Onset Age of this Age Resolved Age Notes LastModified by Organization Details LastModified Time Father No current problems or disability [email or web address] Not available 02/18 10:49:30 Sister No current problems or disability Not available 02/18 10:49:37 Mother Heart disease DEC Not available 2023 10:49:46 Medical History No medical history recorded. Gynecological HistoryNo gynecological history recorded. Obstetrics History GPAL:G 0 P 0 0 0 0 Past Encounters Encounter ID Performer Location Encounter Start Date Encounter Closed Date Diagnosis/Indication Diagnosis SNOMED-CT Code Diagnosis ICD10 Code Diagnosis Note [id number] Milo Mcgregor Jr, MD [facility] [address] [address] 02/19/2024 10:20:05 02/19/2024 11:25:36 Urethral stricture 95530482 N35.92 68-year-ol d white female with history of urethral stenosis. She is having difficulty passing her urine and states that urethral dilation helped a great deal in the past. She was dilated from 22-28 Turk[place] today. There did appear to be some mild resistance in the mid urethra to passage of the initial sound. She tolerated the procedure well no complicati ons. Neosporin and urine shaft placed afterwards . She is to return on an as-needed basis. Health Concerns Section Related Observation LastModified by Organization Detai ls LastModified Time None Recorded Concern Status LastModified by Organization Details LastModified Time None Recorded Advance Directives Directive None Recorded Payers Encounter Date Sequence Insurance Name Policy Number Policy Call Covered Member ID Call Member ID Guarantor Name 02/19/2024 1 [employer] (MEDICARE REPLACEMENT/ ADVANTAGE - HMO) Miriam Montes De Oca [id number] Miriam Montes De Oca Notes Date Note Type Note Provider Name and Address Organization Details Recorded Time 02/19/2024 text/html Patient is a 68-year-old white female with a long history of urethral stenosis. She returns today as a new patient but I have seen her in the past at the [facility]. She is required periodic dilations for relief of urinary symptoms. He has been 3 years since her last dilation. She states she is having trouble passing her urine and urethral dilations resolve the problem. Milo Mcgregor Jr, MD [address] [place] [address], [address], [place], [address], [facility] - LPNT - [place] & [place] 02/19/2024 12:58:14 OBGyn Episode No OBEpisode recorded.
--- NOTE | 2024-08-12 08:53 | XR_ITS ---
FINAL REPORT TECHNIQUE: Bone densitometry calculations of the lumbar spine and left hip were obtained. CLINICAL HISTORY: . FINDINGS: Using L1-4, the bone mineral density of the spine is 1.230 g/cm2, corresponding to T-score of 1.7 and a Z score of 3.6. This is within the range of normal limits. Using the left hip, the bone mineral density of the femoral neck is 1.000 g/cm2, corresponding to a T-score of 0.5 and a Z-score of 1.8. This is within the range of normal limits. NOTE: T-score: Standard deviation compared with peak bone mass of young adult mean. *Following the recommendations of the International Society of Bone densitometry, classification of hip BMD is based on the lower of two T-scores; total hip or femoral neck. IMPRESSION: 1. Bone mineral density of the lumbar spine within the range of normal limits. 2. Bone mineral density of the left femoral neck within the range of normal limits. Reviewed, Interpreted and Dictated by Maria G Guerin MD Transcribed by Brinda Snow Authenticated and [facility]
--- NOTE | 2024-08-12 08:53 | MM_ITS ---
PROCEDURE INFORMATION: Exam: MG Bilateral Screening 3D Mammography Exam date and time: 08/12/2024 9:03 AM Age: 68 years old Clinical indication: Screening examination TECHNIQUE: Imaging protocol: Bilateral Screening tomosynthesis and 2D mammography including computer-aided detection (CAD) when performed. COMPARISON: 1. MG MM DIG SCREENING MAMM BI W/CAD 06/20/2022 3:03 PM 2. MG MM DIG SCREENING MAMM BI W/CAD 10/13/2019 3:53 PM FINDINGS: MAMMOGRAPHY: Breast composition: There are scattered areas of fibroglandular density. Mass: None. Architectural distortion: None. Calcifications: No suspicious calcifications. Asymmetric density: None. Skin thickening: None. Axillary adenopathy: None. IMPRESSION: No mammographic evidence of malignancy. Annual screening is recommended unless otherwise clinically indicated. ASSESSMENT: BI-RADS Category 1: Negative.
== END 2024-08-12 23:59 | disposition home or self-care (01) ==
LOC: RAD 08:50
PROVIDERS: PCP Internal Medicine Adolescent Medicine; Visit Provider Internal Medicine Adolescent Medicine
DX: Z78.0 Asymptomatic menopausal state (principal); Z12.31 Encounter for screening mammogram for malignant neoplasm of breast
CPT/HCPCS: 77063; 77067; 77080

== ENCOUNTER 2024-12-29 09:24 | Outpatient (CLI) | payer MEDICARE, SELFPAY ==
--- OUTSIDE RECORDS SUMMARY | 2024-11-09 08:00 | XMS_ITS ---
Author Organization [facility] Address [address] [facility] [address] [place], [place] [address] Care Team Providers Care Parachute Marker Name Role Phone CinthiaJesus Primary Care Provider Beata Dinh Unavailable [phone] Allergies Allergen (clinical drug ingredient) Drug/Non Drug Allergy documented on EMR Reaction Allergy Type Onset Date Status SOME BANDAID ADHESIV ES (uncoded) rash Allergy Active SULFA (uncoded) Unknown Allergy Acti ve Sudafed Unknown Drug Allergy Active REASON FOR VISIT sinus infection- bodyaches , congestion , headache , fatigue for almost 2 wks Medications Medication SIG (Take, Route, Frequency, Duration) Notes Start Date End Date Status Magnesium 400MG 1 TABLET BID *Please review and pick correct strength-formulat ion from [employer]istic options. If intended option is not shown, discontinue and re-order from Quick Search* Active Montelukast Sodium 10 MG 1 tab(s) orally once a day; Duration: 90 days Active Ibuprofen 200 MG 1 tab(s) orally every 6 hours Active Norvasc 5 MG 1 tab(s) orally once a day; Duration: 90 days 03/26/2022 Active Amoxicillin-Pot Clavulanate 875-125 MG 1 tablet Orally every 12 hrs; Duration: 7 days 11/09/2024 Active Viibryd 40 MG 1 tab(s) orally once a day; Duration: 90 days Active Ozempic (0.25 or 0.5 MG/DOSE) 2 MG/3ML 0.5 MG Subcutaneous weekly; Duration: 28 days 07/31/2024 Active HYDROcodone-Acetamino phen 5-325 MG 1 tab(s) orally every 6 hours; Duration: 30 day(s) 10/21/2024 Active Atorvastatin Calcium 80 MG 1 tab(s) orally once a day; Duration: 90 days 07/05/2020 Active buPROPion HCl ER (XL) 300 MG 1 tab(s) orally every 24 hours; Duration: 90 day(s) Active Estradiol 0.1 MG/GM as directed intravaginally 3 times a week; Duration: 30 days 02/06/2024 Active metroNIDAZOLE 500 MG 1 tab(s) orally 3 times a day; Duration: 7 day(s) 07/16/2024 Active Lisinopril 20 MG 1 tab(s) orally once a day; Duration: 90 days 03/26/2022 Active Fluticasone Propionate 50 MCG/ACT 2 sprays in each nostril once a day; Duration: 90 days 05/09/2022 Active Methocarbamol 500 MG 1-2 tab(s) orally 4 times a day; Duration: 30 days 05/22/2022 Active TEST STRIPS AND LANCETS NA FOR TWICE A DAY FSBS TESTING NA TWICE DAILY *Please review for potential replacement for e-prescription and drug interaction check* 03/26/2022 Active Cyclobenzaprine HCl 10 MG 1 tab(s) orally once a day; Duration: 30 days Active GLUCOMETER NA USE FOR BID FSBS TESTING NA TWICE DAILY; Duration: 30 DAYS DX: E11.9 *Please review for potential replacement for e-prescription and drug interaction check* 03/26/2022 Active Gemtesa 75 MG 1 tab(s) orally once a day; Duration: 30 day(s) 04/03/2022 Active Vitamin D3 25 MCG (1000 UT) as directed orally once a day; Duration: 30 day(s) Active Cetirizine HCl 10 MG 1 tab(s) orally onc e a day; Duration: 30 days 11/05/2017 Active Fish Oil 1000 MG 1 cap(s) orally daily Active Aspirin 81 MG 1 tab(s) orally once a day 12/20/2015 Active Zinc 50 MG 1 tab(s) orally once a day; Duration: 30 day(s) Active Calcium 500 MG 1 TAB TID *Please review and pick correct strength-formulat ion from [employer] options. If intended option is not shown, discontinue and re-order from Quick Search* Active Vital Signs Temperature 98.3 degrees Fahrenheit 11/10/19 25 Heart Rate 78 /min 11/09/2024 Blood pressure systolic 118 mm Hg 11/10/19 25 Blood pressure diastolic 70 mm Hg 025 Height 5 ft 2.5 in in 11/09/2024 Weight 151 lbs 11/09/2024 BMI 27.18 kg/m2 11/09/2024 Encounters Encounter Location Date Provider Diagnosis [address] [address] 11/09/2024 Beata SnowMercedesdg Acute non-recurrent pansinusitis J01.40 Assessments Encounter Date Diagnosis (ICD Code) Assessment Notes Treatment Notes Treatment Clinical Notes Section Notes 11/09/2024 Acute non-recurrent pansinusitis (ICD-10 - J01.40) Discussed the etiology and expected course of acute sinusitis. Discussed the rationale for antibiotics use and the importance of completing the Augmentin prescription as prescribed. Dexamethasone given IM. Discussed supportive care with antihistamines and appropriate decongestants. Discussed the signs and symptoms of worsening infection that may indicate need for reassessment in clinic/ED. Plan Of Treatment Medication Medication Name Sig Start Date Stop Date Notes Amoxicillin-Pot Clavulanate 875-125 MG 1 tablet Orally every 12 hrs; Duration: 7 days 11/09/2024 Treatment Notes Assessment Notes Acute non-recurrent pansinusitis Discuss ed the etiology and expected course of acute sinusitis. Discussed the rationale for antibiotics use and the importance of completing the Augmentin prescription as prescribed. Dexamethasone given IM. Discussed supportive care with antihistamines and appropriate decongestants. Discussed the signs and symptoms of worsening infection that may indicate need for reassessment in clinic/ED. Next Appt Details Follow Up: prn, Reason: Provider Name:Jesus Martinez Cinthia, 02/04/2025 10:15:00 AM, [address] [place] [address], [id number], Medications Administered Medication Instructions Date of Administration Dosage Notes Dexamethasone 4mg Injection 11/09/2024 4 mg Progress Notes * Niki TENORIOB: [birth year]58 (69 yo F)Acc No.[id number]:11/09/2024 Progress Notes Patient: Miriam ONEILL Provider: Shaun Dinh APRN :1955 A ge:69 Y S ex:Female Date:11/09/2024 Address:[address] [place], [place] [address], [id number] Pcp:Jesus Vicente Subjective: * Chief Complaints: * 1 . Sinus infection- bodyaches , congestion , headache , fatigue for almost 2 wks. * HPI: E NT/respiratory: 69 year old female presents with c/o sore throat f eels scratchy. c/o nasal congestion. c/o rhinorrhea. c/o postnasal drip. c/o facial pain. c/o headache. Denies : cough. D enies : fever. D enies : ear pain.?Denies : shortness of breath. D enies : wheeze. Presents with symptoms x 2 weeks. Reports increased facial pain and pressure the last week. * ROS: C ONSTITUTIONAL: no L oss of appetite. n o F ever. D ERMATOLOGY: no R opal. G ASTROENTEROLOGY: no N ausea. n o V omiting. n o D iarrhea.? * Medical History: K idney stones, Esophageal reflux, Hormone replacement therapy, Allergies, Arthritis, Rotator cuff surgery, left, Hysterectomy, Depression with anxiety, Recurrent UTI, Recurrent sinusitis, HLD, HTN, Cologuard negative 06/14, Normal mammogram 11/11 and 08/14, Normal DEXA scan 08/14. * Medications: T aking Ibuprofen 200 MG Tablet 1 tab(s) orally every 6 hours , Taking Magnesium 400MG 1 TABLET BID , Notes to Pharmacist: *Please review and pick correct strength-formulation from [employer]ispan options. If intended option is not shown, discontinue and re-order from Quick Search*, Taking Aspirin 81 MG Tablet Delayed Release 1 tab(s) orally once a day , Taking Cetirizine HCl 10 MG Tablet 1 tab(s) orally once a day , Taking Fish Oil 1000 MG Capsule 1 cap(s) orally daily , Taking Zinc 50 MG Tablet 1 tab(s) orally once a day , Taking Calcium 500 MG 1 TAB TID , Notes to Pharmacist: *Please review and pick correct strength-formulation from Medispan options. If intended option is not shown, discontinue and re-order from Quick Search*, Taking Vitamin D3 25 MCG (1000 UT) Tablet as directed orally once a day , Taking GLUCOMETER NA PER INSURANCE COVERAGE USE FOR BID FSBS TESTING NA TWICE DAILY , Notes to Pharmacist: DX: E11.9 *Please review for potential replacement for e-prescription and drug interaction check*, Taking Gemtesa 75 MG Tablet 1 tab(s) orally once a day , Taking TEST STRIPS AND LANCETS NA PER INSURANCE COVERAGE WITH GLUCOMETER FOR TWICE A DAY FSBS TESTING NA TWICE DAILY , Notes to Pharmacist: *Please review for potential replacement for e-prescription and drug interaction check*, Taking Cyclobenzaprine HCl 10 MG Tablet 1 tab(s) orally once a day , Taking Lisinopril 20 MG Tablet 1 tab(s) orally once a day , Taking Fluticasone Propionate 50 MCG/ACT Suspension 2 sprays in each nostril once a day , Taking Estradiol 0.1 MG/GM Cream as directed intravaginally 3 times a week , Taking metroNIDAZOLE 500 MG Tablet 1 tab(s) orally 3 times a day , Taking Methocarbamol 500 MG Tablet 1-2 tab(s) orally 4 times a day , Taking buPROPion HCl ER (XL) 300 MG Tablet Extended Release 24 Hour 1 tab(s) orally every 24 hours , Taking Atorvastatin Calcium 80 MG Tablet 1 tab(s) orally once a day , Taking Ozempic (0.25 or 0.5 MG/DOSE) 2 MG/3ML Solution Pen-injector 0.5 MG Subcutaneous weekly , Taking HYDROcodone-Acetaminophen 5-325 MG Tablet 1 tab(s) orally every 6 hours , Taking Viibryd 40 MG Tablet 1 tab(s) orally once a day , Taking Norvasc 5 MG Tablet 1 tab(s) orally once a day , Taking Montelukast Sodium 10 MG Tablet 1 tab(s) orally once a day , Medication List reviewed and reconciled with the patient * Allergies: S ULFA, Sudafed, SOME BANDAID ADHESIVES: rash. Objective: * Vitals: N urse: dw, Pain: 5, Temp: 98.3, RR: 20, HR: 78, BP: 118/70, Ht: 5 ft 2.5 in, Wt: 151, BMI:27.18. * Examination: E NT/Respiratory: General Appearance : w ell nourished and hydrated, alert.? Ears: l eft TM with chronic changes, right EAC with cerumen and TM tube which appears to be in canal unable to see TM. Nose : c ongested . Sinuses : t brandon maxillary sinuses bilaterally tender frontal sinuses bilaterally . Oral Cavity e rythema w/o exudate seen on pharynx. Neck : n o cervical lymphadenopathy. Heart : R RR, normal S1 S2, no murmurs. Lungs : c lear to auscultation bilaterally, no crackles or wheezes. Abdomen : s oft, NT/ND, BS present. Skin : c lear without rashes. Assessment: * Assessment: 1. A cute non-recurrent pansinusitis - J01.40 (Primary) Plan: * Treatment: * Therapeutic Injections: Dexamethasone 4mg Injection : 4 mg (Route: Intramuscular) given by RENATO Pratt on left deltoid * Procedure Codes: J 1100 Dexamethasone Sodium Phosphate 4mg Injection, 80791 THERAPEUTIC ADMINISTRATION * Follow Up: p rn * * Sign off status: Completed true * Provider: Shaun Dinh APRN Date: 0 11/09/2024 Generated for Sahil engle/Latosha/Ashley on: 0 01/01/2025 09:27 AM EDT History and Physical Notes * HPI (History of Present Illness) Category Sub-Category Detail Notes Category Not es ENT/respiratory sore throat feels scratchy Presents with symptoms x 2 weeks. Reports increased facial pain and pressure the last week. facial pain ear pain shortness of breath cough fever postnasal drip headache rhinorrhea nasal congestion wheeze Examination Category Sub-Category Detail Notes Category Not es ENT/Respiratory Oral Cavity erythema w/o exudate seen on pharynx Sinuses : tender maxillary sin uses bilaterally tender frontal sinuses bilaterally Ears: left TM with chronic changes, right EAC with cerumen and TM tube which appears to be in canal unable to see TM Neck : no cervical lymphade nopathy Heart : RRR, normal S1 S2, n o murmurs Lungs : clear to auscultatio n bilaterally, no crackles or wheezes Abdomen : soft, NT/ND, BS pres ent General Appearance : well nourished and hydrated, alert Nose : congested Skin : clear without rashes
--- OUTSIDE RECORDS SUMMARY | 2024-11-17 07:45 | XMS_ITS ---
Author Organization [facility] Address [address] [place] [address] Care Team Providers Care Geotechnical Engineer Name Role Phone Jesus Vicente Primary Care Provider [phone] Allergies Allergen (clinical drug ingredient) Drug/Non Drug Allergy documented on EMR Reaction Allergy Type Onset Date Status SOME BANDAID ADHESIV ES (uncoded) rash Allergy Active SULFA (uncoded) Unknown Allergy Acti ve Sudafed Unknown Drug Allergy Active REASON FOR VISIT sinus infection , ear pain Medications Medication SIG (Take, Route, Frequency, Duration) Notes Start Date End Date Status Viibryd 40 MG 1 tab(s) orally once a day; Duration: 90 days Active Norvasc 5 MG 1 tab(s) orally once a day; Duration: 90 days 03/26/2022 Active Montelukast Sodium 10 MG 1 tab(s) orally once a day; Duration: 90 days Active metroNIDAZOLE 500 MG 1 tab(s) orally 3 times a day; Duration: 7 day(s) 07/16/2024 Active Amoxicillin-Pot Clavulanate 875-125 MG 1 tablet Orally every 12 hrs; Duration: 7 days 11/17/2024 Active Ozempic (0.25 or 0.5 MG/DOSE) 2 MG/3ML 0.5 MG Subcutaneous weekly; Duration: 28 days 07/31/2024 Active HYDROcodone-Acetamino phen 5-325 MG 1 tab(s) orally every 6 hours; Duration: 30 day(s) 10/21/2024 Active buPROPion HCl ER (XL) 300 MG 1 tab(s) orally every 24 hours; Duration: 90 day(s) Active Atorvastatin Calcium 80 MG 1 tab(s) orally once a day; Duration: 90 days 07/05/2020 Active Cyclobenzaprine HCl 10 MG 1 tab(s) orally once a day; Duration: 30 days Active Lisinopril 20 MG 1 tab(s) orally once a day; Duration: 90 days 03/26/2022 Active Fluticasone Propionate 50 MCG/ACT 2 sprays in each nostril once a day; Duration: 90 days 05/09/2022 Active Estradiol 0.1 MG/GM as directed intravaginally 3 times a week; Duration: 30 days 02/06/2024 Active Methocarbamol 500 MG 1-2 tab(s) orally 4 times a day; Duration: 30 days 05/22/2022 Active Gemtesa 75 MG 1 tab(s) orally once a day; Duration: 30 day(s) 04/03/2022 Active TEST STRIPS AND LANCETS NA FOR TWICE A DAY FSBS TESTING NA TWICE DAILY *Please review for potential replacement for e-prescription and drug interaction check* 03/26/2022 Active Vitamin D3 25 MCG (1000 UT) as directed orally once a day; Duration: 30 day(s) Active GLUCOMETER NA USE FOR BID FSBS TESTING NA TWICE DAILY; Duration: 30 DAYS DX: E11.9 *Please review for potential replacement for e-prescription and drug interaction check* 03/26/2022 Active Calcium 500 MG 1 TAB TID *Please review and pick correct strength-formulat ion from [employer] options. If intended option is not shown, discontinue and re-order from Quick Search* Active Aspirin 81 MG 1 tab(s) orally once a day 12/20/2015 Active Magnesium 400MG 1 TABLET BID *Please review and pick correct strength-formulat ion from [employer] options. If intended option is not shown, discontinue and re-order from Quick Search* Active Zinc 50 MG 1 tab(s) orally once a day; Duration: 30 day(s) Active Cetirizine HCl 10 MG 1 tab(s) orally onc e a day; Duration: 30 days 11/05/2017 Active Fish Oil 1000 MG 1 cap(s) orally daily Active Ibuprofen 200 MG 1 tab(s) orally every 6 hours Active Vital Signs Temperature 98.4 degrees Fahrenheit 11/18/19 25 Heart Rate 82 /min 11/17/2024 Blood pressure systolic 126 mm Hg 11/18/19 25 Blood pressure diastolic 80 mm Hg 025 Height 5 ft 2.5 in in 11/17/2024 Weight 152 lbs 11/17/2024 BMI 27.36 kg/m2 11/17/2024 Encounters Encounter Location Date Provider Diagnosis [facility] [address] [address] 11/17/2024 Jesus Vicente Acute recurrent maxillary sinusitis J01.01 Assessments Encounter Date Diagnosis (ICD Code) Assessment Notes Treatment Notes Treatment Clinical Notes Section Notes 11/17/2024 Acute recurrent maxillary sinusitis (ICD-10 - J01.01) Plan Of Treatment Medication Medication Name Sig Start Date Stop Date Notes Amoxicillin-Pot Clavulanate 875-125 MG 1 tablet Orally every 12 hrs; Duration: 7 days 11/17/2024 Next Appt Details Follow Up: prn, Reason: Provider Name:Jesus Vicente, 02/04/2025 10:15:00 AM, [address], [address], Progress Notes * COBYMiriam SINGHDOB: [birth year] (69 yo F)Acc No.[id number]:11/17/2024 Progress Notes Patient: Miriam ONEILL Provider: Mya Vicente MD :1955 A ge:69 Y S ex:Female Date:11/17/2024 Address:[address] [place], [place] [id number] Subjective: * Chief Complaints: * 1 . Sinus infection , ear pain. * HPI: E NT/respiratory: 69 year old female presents with c/o nasal congestion. c/o ear pain. c/o facial pain. Denies : sore throat. D enies : cough. D enies : fever.?Denies : rhinorrhea. * Medical History: K idney stones, Esophageal [...] *Please review and pick correct strength-formulation from [employer] options. If intended option is not shown, [...] *Please review and pick correct strength-formulation from [employer] options. If intended option is not shown, [...] intravaginally 3 times a week , Taking Methocarbamol 500 MG Tablet 1-2 tab(s) orally 4 times a day , Taking buPROPion HCl ER (XL) 300 MG Tablet Extended Release 24 Hour 1 tab(s) orally every 24 hours , Taking Atorvastatin Calcium 80 MG Tablet 1 tab(s) orally once a day , Taking Ozempic (0.25 or 0.5 MG/DOSE) 2 MG/3ML Solution Pen-injector 0.5 MG Subcutaneous weekly , Taking HYDROcodone- Acetaminophen 5-325 MG Tablet 1 tab(s) orally every 6 hours , Taking Viibryd 40 MG Tablet 1 tab(s) orally once a day , Taking Norvasc 5 MG Tablet 1 tab(s) orally once a day , Taking Montelukast Sodium 10 MG Tablet 1 tab(s) orally once a day , Taking metroNIDAZOLE 500 MG Tablet 1 tab(s) orally 3 times a day , Discontinued Amoxicillin-Pot Clavulanate 875-125 MG Tablet 1 tablet Orally every 12 hrs , Medication List reviewed and reconciled with the patient * Allergies: S ULFA, Sudafed, SOME BANDAID ADHESIVES: rash. Objective: * Vitals: N urse: dw, Pain: 2, Temp: 98.4, RR: 20, HR: 82, BP: 126/80, Ht: 5 ft 2.5 in, Wt: 152, BMI:27.36. * Examination: E NT/Respiratory: General Appearance : w ell nourished and hydrated, alert.? Ears: a uditory canals normal bilaterally, tympanic membranes normal bilaterally. Sinuses : t brandon maxillary sinuses bilaterally. Oral Cavity n o erythema or exudate seen on pharynx. Lungs : c lear to auscultation bilaterally, no crackles or wheezes. Assessment: * Assessment: 1. A jennymaren recurrent maxillary sinusitis - J01.01 (Primary) Plan: * Treatment: * Follow Up: p rn * * Sign off status: Completed true * Provider: Mya Vicente MD Date: 0 11/17/2024 Generated for Sahil engle/Latosha/eTransmitting on: 0 01/01/2025 09:26 AM EDT History and Physical Notes * HPI (History of Present Illness) Category Sub-Category Detail Notes Category Not es ENT/respiratory sore throat facial pain ear pain cough fever rhinorrhea nasal congestion Examination Category Sub-Category Detail Notes Category Not es ENT/Respiratory Oral Cavity no erythema or exudate se en on pharynx Sinuses : tender maxillary sin uses bilaterally Ears: auditory canals norm al bilaterally, tympanic membranes normal bilaterally Lungs : clear to auscultatio n bilaterally, no crackles or wheezes General Appearance : well nourished and hydrated, alert
--- OUTSIDE RECORDS SUMMARY | 2024-11-24 10:00 | XMS_ITS ---
Author Organization [facility] Address [address] [place] [address] [address] [facility] [address] [place] [address] Care Team Providers Care Wind Up Worker Name Role Phone Jesus Vicente Primary Care Provider Allergies Allergen (clinical drug ingredient) Drug/Non Drug Allergy documented on EMR Reaction Allergy Type Onset Date Status SOME BANDAID ADHESIV ES (uncoded) rash Allergy Active SULFA (uncoded) Unknown Allergy Acti ve Sudafed Unknown Drug Allergy Active Reason For Referral Reason Dr. Sukhwinder mascorro for br east lump and a skin lesion on breast Diagnosis 1 Breast lump in femal e (N63.0) Referral Organization [facility] Referring Provider First Name Jesus Referring Provider Last Name Cinthia Referring Provider Speciality Internal M edicine Referred Organization [facility] Referred Address [address] [place] [address], [place], [place],[address], Referred Provider Specialty General Surg shaq General Notes Lulu Jordan 2024 10:57:40 AM >Patient informed of appt Referral Priority Routine Referral Appointment Date 12/02/2024 REASON FOR VISIT knot on Rt breast Medications Medication SIG (Take, Route, Frequency, Duration) Notes Start Date End Date Status Norvasc 5 MG 1 tab(s) orally once a day; Duration: 90 days 03/26/2022 Active HYDROcodone-Acetamino phen 5-325 MG 1 tab(s) orally every 6 hours; Duration: 30 day(s) 11/19/2024 Active Montelukast Sodium 10 MG 1 tab(s) orally once a day; Duration: 90 days Active Viibryd 40 MG 1 tab(s) orally once a day; Duration: 90 days Active Atorvastatin Calcium 80 MG 1 tab(s) orally once a day; Duration: 90 days 07/05/2020 Active Ozempic (0.25 or 0.5 MG/DOSE) 2 MG/3ML 0.5 MG Subcutaneous weekly; Duration: 28 days 07/31/2024 Active Methocarbamol 500 MG 1-2 tab(s) orally 4 times a day; Duration: 30 days 05/22/2022 Active buPROPion HCl ER (XL) 300 MG 1 tab(s) orally every 24 hours; Duration: 90 day(s) Active Estradiol 0.1 MG/GM as directed intravaginally 3 times a week; Duration: 30 days 02/06/2024 Active Lisinopril 20 MG 1 tab(s) orally once a day; Duration: 90 days 03/26/2022 Active Fluticasone Propionate 50 MCG/ACT 2 sprays in each nostril once a day; Duration: 90 days 05/09/2022 Active TEST STRIPS AND LANCETS NA FOR [...] a day; Duration: 30 day(s) 04/03/2022 Active Calcium 500 MG 1 TAB TID *Please review and pick correct strength-formulat ion from [employer] options. If intended option is not shown, discontinue and re-order from Quick Search* Active Vitamin D3 25 MCG (1000 UT) as directed orally once a day; Duration: 30 day(s) Active Zinc 50 MG 1 tab(s) orally once a day; Duration: 30 day(s) Active Cetirizine HCl 10 MG 1 tab(s) orally onc e a day; Duration: 30 days 11/05/2017 Active Fish Oil 1000 MG 1 cap(s) orally daily Active Magnesium 400MG 1 TABLET BID *Please review and pick correct strength-formulat ion from [employer] options. If intended option is not shown, discontinue and re-order from Quick Search* Active Aspirin 81 MG 1 tab(s) orally once a day 12/20/2015 Active Ibuprofen 200 MG 1 tab(s) orally every 6 hours Active Vital Signs Temperature 98 degrees Fahrenheit 11/24/2024 Heart Rate 74 /min 11/24/2024 Blood pressure systolic 125 mm Hg 11/25/19 25 Blood pressure diastolic 80 mm Hg 025 Height 5 ft 2.5 in in 11/24/2024 Weight 150 lbs 11/24/2024 BMI 27 kg/m2 11/24/2024 dw Encounters Encounter Location Date Provider Diagnosis [facility] [address] [address] 11/24/2024 Jesus Vicente Breast lump in female N63.0 and Mass of upper inner quadrant of right breast N63.12 Assessments Encounter Date Diagnosis (ICD Code) Assessment Notes Treatment Notes Treatment Clinical Notes Section Notes 11/24/2024 Breast lump in female (ICD-10 - N63.0) Isolated mass is not super concerning but given the presence of the scarring and skin changes probably 2 different locations need biopsied. Surgical referral 11/24/2024 Mass of upper inner quadrant of right breast (ICD-10 - N63.12) Will Refer to Breast surgeon for concern for breast cancer. Plan Of Treatment Treatment Notes Assessment Notes Breast lump in female Isolated mass is not super concerning but given the presence of the scarring and skin changes probably 2 different locations need biopsied. Surgical referral Mass of upper inner quadrant of right breast Will Refer to Breast surgeon for concern for breast cancer. Referrals Referral Date Details 11/24/2024 11/24/2024, Dr. Sukhwinder mascorro for breast lump and a skin lesion on breast, [address] [place], [address], Next Appt Details Follow Up: prn, Reason: Provider Name:Jesus Vicente, 02/04/2025 10:15:00 AM, [address] [address], [place], [address], Progress Notes * Alida TENORIO: [birth year] (69 yo F)Acc No.[id number]:11/24/2024 Progress Notes Patient: Miriam ONEILL Provider: Mya Vicente MD :1955 A ge:69 Y S ex:Female Date:11/24/2024 Address:[address] [place] [address], [id number] Subjective: * Chief Complaints: * 1 . knot on Rt breast. * HPI: g en: Lump on right medial breast, about 2 o'clock, nonpainful, mobile, 0.7 cm, no skin changes, bruise noted around area. No discharge. Splinter in spot on right lateral breast. About 11 oclock. blood oozing, skin changes. No other complaints. * Medical History: K idney stones, Esophageal reflux, Hormone replacement therapy, Allergies, Arthritis, Rotator cuff surgery, left, Hysterectomy, Depression with anxiety, Recurrent UTI, Recurrent sinusitis, HLD, HTN, Cologuard negative 06/14, Normal mammogram 11/11 and 08/14, Normal DEXA scan 08/14. * Surgical History: h ysterectomy , gallbladder removed , scartissue removed , appendectomy , left shoulder surgery , bilateral ear tubes 04/2018, right foot/ankle x 2 11/2019. * Hospitalization/Major Diagno stic Procedure: a lauren surgeries , kidney stones . * Family History: F ather: , HLD, diagnosed with Cancer, Stroke. M other: , HLD, COPD, diagnosed with Hypertension, Heart Disease. P aternal Grand Father: . P aternal Grand Mother: . M aternal Grand Father: . M aternal Grand Mother: . P aternal uncle: alive. P aternal aunt: alive. M aternal uncle: alive. M aternal aunt: alive. Siblings: alive, diagnosed with Hypertension. C hildren: alive, 1 son - MVA. 1 sister(s) - healthy. 2 son(s) . . 1 son r/t MVC. * Social History: S moking A re you a:: nonsmoker. E xercise: yes. Home smoke detector use: yes. Caffeine: yes, frequency: soda daily. Living Will: No. Travel outside [place]: no. 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 * Medications: T aking Ibuprofen 200 MG Tablet 1 tab(s) orally every 6 hours , Taking Magnesium 400MG 1 TABLET BID , Notes to Pharmacist: *Please review and pick correct strength-formulation from [employer] options. If intended option is not shown, [...] *Please review and pick correct strength-formulation from [employer] options. If intended option is not shown, [...] Pen-injector 0.5 MG Subcutaneous weekly , Taking Viibryd 40 MG Tablet 1 tab(s) orally once a day , Taking Norvasc 5 MG Tablet 1 tab(s) orally once a day , Taking Montelukast Sodium 10 MG Tablet 1 tab(s) orally once a day , Taking HYDROcodone-Acetaminophen 5-325 MG Tablet 1 tab(s) orally every 6 hours , Discontinued metroNIDAZOLE 500 MG Tablet 1 tab(s) orally 3 times a day , Discontinued Amoxicillin-Pot Clavulanate 875-125 MG Tablet 1 tablet Orally every 12 hrs , Medication List reviewed and reconciled with the patient * Allergies: S ULFA, Sudafed, SOME BANDAID ADHESIVES: rash. Objective: * Vitals: N urse: dw, Pain: 0, Temp: 98, RR: 20, HR: 74, BP: 125/80, Ht: 5 ft 2.5 in, Wt: 150, BMI:27. dw. * Examination: G eneral Examination: General P leasant and Cooperative, NAD on RA,. Chest: S ee HPI for Breast PE. Heart: R egular Rate and Rhythm, no murmur, rubs or gallops. Lungs: L CTAB, No wheezes, crackles or rhonchi, Good air movement,. Abdomen: S oft, NTND, BSNA, No organomegaly or peritoneal signs.. Assessment: * Assessment: 1. B reast lump in female - N63.0 (Primary) 2 . M ass of upper inner quadrant of right breast - N63.12 Plan: * Treatment: 2. M ass of upper inner quadrant of right breast Notes: Will Refer to Breast surgeon for concern for breast cancer. * Follow Up: p rn * * Sign off status: Completed true * Provider: Mya Vicente MD Date: 0 11/24/2024 Generated for Cherellei kadie/Latosha/Sharanitting on: 01/01/2025 09:27 AM EDT History and Physical Notes * HPI (History of Present Illness) Category Sub-Category Detail Notes Category Not es gen Lump on right medial breast, about 2 o'clock, nonpainful, mobile, 0.7 cm, no skin changes, bruise noted around area. No discharge. Splinter in spot on right lateral breast. About 11 oclock. blood oozing, skin changes. No other complaints. Examination Category Sub-Category Detail Notes Category Not es General Examination Heart: Regular Rate and Rhythm, no murmur, rubs or gallops Lungs: LCTAB, No wheezes, c rackles or rhonchi, Good air movement, Abdomen: Soft, NTND, BSNA, No organomegaly or peritoneal signs. Chest: See HPI for Breast P E General Pleasant and Coopera tive, NAD on RA, Consultation Request Notes Referral Date Referring Provider Referred Provider Not es 11/24/[address] Reid eva l for breast lump and a skin lesion on breast
--- OUTSIDE RECORDS SUMMARY | 2024-12-14 07:45 | XMS_ITS ---
Author Organization [facility] Address [address] [place] [address] [facility] [address] [place] [address] Care Team Providers Care Inward Toll Operator Name Role Phone Jesus Vicente Primary Care Provider [phone] Beata Dinh Unavailable [phone] Allergies Allergen (clinical drug ingredient) Drug/Non Drug Allergy documented on EMR Reaction Allergy Type Onset Date Status SOME BANDAID ADHESIV ES (uncoded) rash Allergy Active SULFA (uncoded) Unknown Allergy Acti ve Sudafed Unknown Drug Allergy Active REASON FOR VISIT ear swollen and painful Medications Medication SIG (Take, Route, Frequency, Duration) Notes Start Date End Date Status Cephalexin 500 MG 1 capsule Orally 3 time a day; Duration: 7 days 12/14/2024 Active Ofloxacin 0.3 % 10 drops into affected ear Otic Once a day; Duration: 7 days 12/14/2024 Active Cyclobenzaprine HCl 10 MG 1 tab(s) orally once a day; Duration: 30 days Active Fluticasone Propionate 50 MCG/ACT 2 sprays in each nostril once a day; Duration: 90 days 05/09/2022 Active HYDROcodone-Acetamino phen 5-325 MG 1 tab(s) orally every 6 hours; Duration: 30 day(s) 11/19/2024 Active Ozempic (0.25 or 0.5 MG/DOSE) 2 MG/3ML 0.5 MG Subcutaneous weekly; Duration: 28 days 07/31/2024 Active Atorvastatin Calcium 80 MG 1 tab(s) orally once a day; Duration: 90 days 07/05/2020 Active Montelukast Sodium 10 MG 1 tab(s) orally once a day; Duration: 90 days Active Norvasc 5 MG 1 tab(s) orally once a day; Duration: 90 days 03/26/2022 Active Viibryd 40 MG 1 tab(s) orally once a day; Duration: 90 days Active buPROPion HCl ER (XL) 300 MG 1 tab(s) orally every 24 hours; Duration: 90 day(s) Active Methocarbamol 500 MG 1-2 tab(s) orally 4 times a day; Duration: 30 days 05/22/2022 Active Estradiol 0.1 MG/GM as directed intravaginally 3 times a week; Duration: 30 days 02/06/2024 Active Lisinopril 20 MG 1 tab(s) orally once a day; Duration: 90 days 03/26/2022 Active Zinc 50 MG 1 tab(s) orally once a day; Duration: 30 day(s) Active Gemtesa 75 MG 1 tab(s) orally once a day; Duration: 30 day(s) 04/03/2022 Active Vitamin D3 25 MCG (1000 UT) as directed orally once a day; Duration: 30 day(s) Active Calcium 500 MG 1 TAB TID *Please review and pick correct strength-formulat ion from [employer] options. If intended option is not shown, discontinue and re-order from Quick Search* Active Fish Oil 1000 MG 1 cap(s) orally daily Active Cetirizine HCl 10 MG 1 tab(s) orally onc e a day; Duration: 30 days 11/05/2017 Active Aspirin 81 MG 1 tab(s) orally once a day 12/20/2015 Active Magnesium 400MG 1 TABLET BID *Please review and pick correct strength-formulat ion from [employer] options. If intended option is not shown, discontinue and re-order from Quick Search* Active Ibuprofen 200 MG 1 tab(s) orally every 6 hours Active Vital Signs Temperature 98.8 degrees Fahrenheit 12/15/19 25 Heart Rate 80 /min 12/14/2024 Blood pressure systolic 142 mm Hg 12/15/19 25 Blood pressure diastolic 84 mm Hg 025 Height 5 ft 2.5 in in 12/14/2024 Weight 152 lbs 12/14/2024 BMI 27.36 kg/m2 12/14/2024 Encounters Encounter Location Date Provider Diagnosis [facility] [place] [address] [place] [address] 12/14/2024 Beata Dinh Cellulitis of right ear canal H60.11 Assessments Encounter Date Diagnosis (ICD Code) Assessment Notes Treatment Notes Treatment Clinical Notes Section Notes 12/14/2024 Cellulitis of right ear canal (ICD-10 - H60.11) Treat with topical and oral abx. Warm compresses TID. Supportive care and return precautions discussed Plan Of Treatment Medication Medication Name Sig Start Date Stop Date Notes Cephalexin 500 MG 1 capsule Orally 3 t ashli a day; Duration: 7 days 12/14/2024 Ofloxacin 0.3 % 10 drops into affect ed ear Otic Once a day; Duration: 7 days 12/14/2024 Treatment Notes Assessment Notes Cellulitis of right ear canal Treat with topical and oral abx. Warm compresses TID. Supportive care and return precautions discussed Next Appt Details Follow Up: prn, Reason: Provider Name:Jesus Vicente, 02/04/2025 10:15:00 AM, [address], [address], Progress Notes * Miriam TENORIODOB: [birth year] (69 yo F)Acc No.[id number]:12/14/2024 Progress Notes Patient: Miriam ONEILL Provider: Shaun Dinh APRN :1955 A ge:69 Y S ex:Female Date:12/14/2024 Address:[address] [place], [place] [id number] Pcp:Jesus Vicente Subjective: * Chief Complaints: * 1 . Ear swollen and painful. * HPI: g en: 69 y/o female presents with right ear tenderness and swelling. Began 3 days ago. Concerned she may have a tick in her ear. Otherwise feels well. No fevers. * ROS: A LLERGY: no R unny nose. n o S cratchy throat. ? R ESPIRATORY: no C hest congestion. n o C ough. C ONSTITUTIONAL: no L oss of appetite. n o F ever. D ERMATOLOGY: no R opal. * Medical History: K idney stones, Esophageal [...] *Please review and pick correct strength-formulation from [employer]mb[employer] options. If intended option is not shown, [...] *Please review and pick correct strength-formulation from [employer] options. If intended option is not shown, discontinue and re-order from Quick Search*, Taking Vitamin D3 25 MCG (1000 UT) Tablet as directed orally once a day , Taking Gemtesa 75 MG Tablet 1 tab(s) orally once a day , Taking Lisinopril 20 MG Tablet 1 tab(s) orally once a day , Taking Estradiol 0.1 [...] tab(s) orally every 6 hours , Taking Fluticasone Propionate 50 MCG/ACT Suspension 2 sprays in each nostril once a day , Taking Cyclobenzaprine HCl 10 MG Tablet 1 tab(s) orally once a day , Discontinued GLUCOMETER NA PER INSURANCE COVERAGE USE FOR BID FSBS TESTING NA TWICE DAILY , Notes to Pharmacist: DX: E11.9 *Please review for potential replacement for e- prescription and drug interaction check*, Discontinued TEST STRIPS AND LANCETS NA PER INSURANCE COVERAGE WITH GLUCOMETER FOR TWICE A DAY FSBS TESTING NA TWICE DAILY , Notes to Pharmacist: *Please review for potential replacement for e-prescription and drug interaction check*, Medication List reviewed and reconciled with the patient * Allergies: S ULFA, Sudafed, SOME BANDAID ADHESIVES: rash. Objective: * Vitals: N urse: nancy, Pain: 5, Temp: 98.8, RR: 20, HR: 80, BP: 142/84, Ht: 5 ft 2.5 in, Wt: 152, BMI:27.36. * Examination: E NT/Respiratory: General Appearance : w ell nourished and hydrated, alert.? Ears: l eft EAC/TM unremarkable, right EAC erythematous, tender extending to external year. TM with serous effusion. Nose : n ormal, no lesions. Oral Cavity n o erythema or exudate seen on pharynx. Neck : t brandon right anterior cervical lymphadenopathy.? Heart : R RR, normal S1 S2, no murmurs. Lungs : c lear to auscultation bilaterally, no crackles or wheezes. Abdomen : s oft, NT/ND, BS present. Skin : c lear without rashes. Assessment: * Assessment: 1. C ellulitis of right ear canal - H60.11 (Primary) Plan: * Treatment: * Follow Up: p rn * * Sign off status: Completed true * Provider: Shaun Dinh APRN Date: 12/14/2024 Generated for Sahil engle/Latosha/Sharanitting on: 01/01/2025 09:27 AM EDT History and Physical Notes * HPI (History of Present Illness) Category Sub-Category Detail Notes Category Not es gen 69 y/o female p resents with right ear tenderness and swelling. Began 3 days ago. Concerned she may have a tick in her ear. Otherwise feels well. No fevers Examination Category Sub-Category Detail Notes Category Not es ENT/Respiratory Oral Cavity no erythema or exudate se en on pharynx Ears: left EAC/TM unremark able, right EAC erythematous, tender extending to external year. TM with serous effusion Neck : tender right anterio r cervical lymphadenopathy Heart : RRR, normal S1 S2, n o murmurs Lungs : clear to auscultatio n bilaterally, no crackles or wheezes Abdomen : soft, NT/ND, BS pres ent General Appearance : well nourished and hydrated, alert Nose : normal, no lesions Skin : clear without rashes
--- OUTSIDE RECORDS SUMMARY | 2024-12-17 11:00 | XMS_ITS ---
Author Organization [facility] Address [address] [place] [address] [place] [address] Care Team Providers Care Disaster Response Director Name Role Phone Jesus Vicente Primary Care Provider Allergies Allergen (clinical drug ingredient) Drug/Non Drug Allergy documented on EMR Reaction Allergy Type Onset Date Status SOME BANDAID ADHESIV ES (uncoded) rash Allergy Active SULFA (uncoded) Unknown Allergy Acti ve Sudafed Unknown Drug Allergy Active REASON FOR VISIT ear pain - no better Medications Medication SIG (Take, Route, Frequency, Duration) Notes Start Date End Date Status Lisinopril 20 MG 1 tab(s) orally once a day; Duration: 90 days 03/26/2022 Active Methocarbamol 500 MG 1-2 tab(s) orally 4 times a day; Duration: 30 days 05/22/2022 Active Estradiol 0.1 MG/GM as directed intravaginally 3 times a week; Duration: 30 days 02/06/2024 Active Atorvastatin Calcium 80 MG 1 tab(s) orally once a day; Duration: 90 days 07/05/2020 Active buPROPion HCl ER (XL) 300 MG 1 tab(s) orally every 24 hours; Duration: 90 day(s) Active Zinc 50 MG 1 tab(s) orally once a day; Duration: 30 day(s) Active Fish Oil 1000 MG 1 cap(s) orally daily Active Vitamin D3 25 MCG (1000 UT) as directed orally once a day; Duration: 30 day(s) Active Calcium 500 MG 1 TAB TID *Please review and pick correct strength-formulat ion from [employer] options. If intended option is not shown, discontinue and re-order from Quick Search* Active Gemtesa 75 MG 1 tab(s) orally once a day; Duration: 30 day(s) 04/03/2022 Active Ibuprofen 200 MG 1 tab(s) orally every 6 hours Active HYDROcodone-Acetamino phen 5-325 MG 1 tab(s) orally every 6 hours; Duration: 30 day(s) 12/16/2024 Active Aspirin 81 MG 1 tab(s) orally once a day 12/20/2015 Active Magnesium 400MG 1 TABLET BID *Please review and pick correct strength-formulat ion from [employer] options. If intended option is not shown, discontinue and re-order from Quick Search* Active Cetirizine HCl 10 MG 1 tab(s) orally onc e a day; Duration: 30 days 11/05/2017 Active Fluticasone Propionate 50 MCG/ACT 2 sprays in each nostril once a day; Duration: 90 days 05/09/2022 Active Montelukast Sodium 10 MG 1 tab(s) orally once a day; Duration: 90 days Active Ofloxacin 0.3 % 10 drops into affected ear Otic Once a day; Duration: 7 days 12/14/2024 Active Cyclobenzaprine HCl 10 MG 1 tab(s) orally once a day; Duration: 30 days Active Cephalexin 500 MG 1 capsule Orally 3 time a day; Duration: 7 days 12/14/2024 Active Norvasc 5 MG 1 tab(s) orally once a day; Duration: 90 days 03/26/2022 Active Viibryd 40 MG 1 tab(s) orally once a day; Duration: 90 days Active Ozempic (0.25 or 0.5 MG/DOSE) 2 MG/3ML 0.5 MG Subcutaneous weekly; Duration: 28 days 07/31/2024 Active Vital Signs Temperature 98 degrees Fahrenheit 12/17/2024 Heart Rate 78 /min 12/17/2024 Blood pressure systolic 138 mm Hg 12/18/19 25 Blood pressure diastolic 80 mm Hg 025 Height 5 ft 2.5 in in 12/17/2024 Weight 148 lbs 12/17/2024 BMI 26.64 kg/m2 12/17/2024 dw Encounters Encounter Location Date Provider Diagnosis [facility] [address] [id number] 12/17/2024 Jesus Vicente Acute otitis externa of right ear, unspecified type H60.501 Assessments Encounter Date Diagnosis (ICD Code) Assessment Notes Treatment Notes Treatment Clinical Notes Section Notes 12/17/2024 Acute otitis externa of right ear, unspecified type (ICD-10 - H60.501) Has not improved much on good topical and oral therapy. Significant pain, her risk factors include age and other risk factors for mastoiditis. Urgent referral to ENT made, personally called ENT office they will see her this afternoon and hopefully be able to microdebrider and remove what ever foreign body might be present. Plan Of Treatment Treatment Notes Assessment Notes Acute otitis externa of righ t ear, unspecified type Has not improved much on good topical and oral therapy. Significant pain, her risk factors include age and other risk factors for mastoiditis. Urgent referral to ENT made, personally called ENT office they will see her this afternoon and hopefully be able to microdebrider and remove what ever foreign body might be present. Next Appt Details Follow Up: prn, Reason: Provider Name:Jesusumm Vicente, 02/04/2025 10:15:00 AM, [address] [address], [place], [address], Progress Notes * Miriam TENORIODOB: [birth year] (69 yo F)Acc No.[id number]:12/17/2024 Progress Notes Patient: Lida Miriam TURNER Provider: Mya Vicente MD :1955 A ge:69 Y S ex:Female Date:12/17/2024 Address:[address] [place], [place] [id number] Subjective: * Chief Complaints: * 1 . Ear pain - no better. * HPI: g en: See note from earlier this week. Patient notes that eardrops have helped slightly, but still has a lot of pain when the pinna is moved in the bone behind the ear. No fevers. * Medical History: K idney stones, Esophageal [...] *Please review and pick correct strength-formulation from It[employer] options. If intended option is not shown, [...] *Please review and pick correct strength-formulation from [employer] options. If intended option is not shown, [...] tab(s) orally once a day , Taking Ofloxacin 0.3 % Solution 10 drops into affected ear Otic Once a day , Taking Cephalexin 500 MG Capsule 1 capsule Orally 3 time a day , Taking HYDROcodone-Acetaminophen 5-325 MG Tablet 1 tab(s) orally every 6 hours , Medication List reviewed and reconciled with the patient * Allergies: S ULFA, Sudafed, SOME BANDAID ADHESIVES: rash. Objective: * Vitals: N urse: dw, Pain: 8, Temp: 98, RR: 20, HR: 78, BP: 138/80, Ht: 5 ft 2.5 in, Wt: 148, BMI:26.64. dw. * Examination: G eneral Examination: L eft ear and EAC and TM normal. Right has a swollen EAC with some blistering on the anterior aspect and significant tenderness when movement. I cannot see the base of the canal or the tympanic membrane. Mastoid is tender also. Assessment: * Assessment: 1. A cute otitis externa of right ear, unspecified type - H60.501 (Primary) Plan: * Treatment: * Follow Up: p rn * * Sign off status: Completed true * Provider: Mya Vicente MD Date: 0 12/17/2024 Generated for Cherellei kadie/Latosha/Adrianasmitting on: 0 01/01/2025 09:27 AM EDT History and Physical Notes * HPI (History of Present Illness) Category Sub-Category Detail Notes Category Not es gen See note from earlier this week. Patient notes that eardrops have helped slightly, but still has a lot of pain when the pinna is moved in the bone behind the ear. No fevers. Examination Category Sub-Category Detail Notes Category Not es General Examination Left ear and EAC and TM normal. Right has a swollen EAC with some blistering on the anterior aspect and significant tenderness when movement. I cannot see the base of the canal or the tympanic membrane. Mastoid is tender also
--- OUTSIDE RECORDS SUMMARY | 2025-01-01 09:27 | XMS_ITS | Patient Health Record ---
Author Organization 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 Name Role Phone Jesus Vicente Primary Care Provider [phone] Kimmie Pretty Unavailable [phone] Beata Dinh Unavailable [phone] Migration, Provider Unavailable Unavailable Allergies Allergen (clinical drug ingredient) Drug/Non Drug Allergy documented on EMR Reaction Allergy Type Onset Date Status SOME BANDAID ADHESIV ES (uncoded) rash Allergy Active SULFA (uncoded) Unknown Allergy Acti ve Sudafed Unknown Drug Allergy Active Results Component Value Reference Range Notes Mammogram : Bilateral Reviewed date:08/18/2024 03:19:42 PM Interpretation: Performing Lab: Notes/Report: CULTURE, URINE, ROUTINE (395 ) Reviewed date:07/21/2024 10:54:48 AM Interpretation: Performing Lab:ANA LUISA [facility] [id number], [place] CltjPO[address] Benny De Leon Notes/Report: NON-FASTING CULTURE, URINE, ROUTINE SEE NOTE CULTURE, URINE, ROUTINE Micro Number: [id number] Test Status: Final Specimen Source: Urine Specimen Quality: Adequate Result: Non-uropathogenic Gram positive organism May represent colonizers from external and internal genitalia. No further testing (including susceptibility) will be performed. COMPREHENSIVE METABOLIC PANE L ([id number]) Reviewed date:07/30/2024 02:35:13 PM Interpretation: Performing Lab:ANA LUISA [facility] [id number], [place] [id number] Benny De Leon Notes/Report: NON-FASTING; NON-FASTING; NON-FASTING FASTING:YES FASTING: YES GLUCOSE 87 65-99 mg/dL Fasting reference interval UREA NITROGEN (BUN) 23 7-25 mg/dL CREATININE 1.05 0.50-1.05 mg/dL EGFR 59 > OR = 60 mL/min/1.73m2 BUN/CREATININE RATIO SEE NOTE: 6-22 (calc) Not Reported: BUN and Creatinine are within reference range. SODIUM 140 135-146 mmol/L POTASSIUM 4.7 3.5-5.3 mmol/L CHLORIDE 106 98-110 mmol/L CARBON DIOXIDE 28 20-32 mmol/L CALCIUM 9.3 8.6-10.4 mg/dL PROTEIN, TOTAL 6.5 6.1-8.1 g/dL ALBUMIN 4.2 3.6-5.1 g/dL GLOBULIN 2.3 1.9-3.7 g/dL (calc) ALBUMIN/GLOBULIN RATIO 1.8 1.0-2.5 (calc) BILIRUBIN, TOTAL 0.9 0.2-1.2 mg/dL ALKALINE PHOSPHATASE 105 37-153 U/L AST 48 10-35 U/L ALT 56 6-29 U/L DEXA Hip and Spine - Screeni ng Reviewed date:08/17/2024 02:02:24 PM Interpretation: Performing Lab: Notes/Report: COMPREHENSIVE METABOLIC PANE L ([id number]) Reviewed date:05/07/2024 08:59:31 AM Interpretation: Performing Lab:CB, [facility] [id number] [facility], [place] [id number] Benny De Leon Notes/Report: NON-FASTING; NON-FASTING FASTING:YES FASTING: YES GLUCOSE 80 65-99 mg/dL Fasting reference interval UREA NITROGEN (BUN) 17 7-25 mg/dL CREATININE 1.14 0.50-1.05 mg/dL EGFR 53 > OR = 60 mL/min/1.73m2 BUN/CREATININE RATIO 15 6-22 (calc) SODIUM 139 135-146 mmol/L POTASSIUM 4.9 3.5-5.3 mmol/L CHLORIDE 105 98-110 mmol/L CARBON DIOXIDE 27 20-32 mmol/L CALCIUM 9.8 8.6-10.4 mg/dL PROTEIN, TOTAL 7.0 6.1-8.1 g/dL ALBUMIN 4.5 3.6-5.1 g/dL GLOBULIN 2.5 1.9-3.7 g/dL (calc) ALBUMIN/GLOBULIN RATIO 1.8 1.0-2.5 (calc) BILIRUBIN, TOTAL 1.1 0.2-1.2 mg/dL ALKALINE PHOSPHATASE 130 37-153 U/L AST 34 10-35 U/L ALT 42 6-29 U/L HEMOGLOBIN A1c (496) Reviewed date:07/30/2024 02:35:13 PM Interpretation: Performing Lab:ANA LUISA [facility] [id number] [facility], [place] HospitalMwrjCR[address] Benny De Leon Notes/Report: NON-FASTING; NON-FASTING; NON-FASTING FASTING:YES FASTING: YES HEMOGLOBIN A1c 5.3 <5.7 % of total Hgb For the purpose of screening for the presence of diabetes: <5.7% Consistent with the absence of diabetes 5.7-6.4% Consistent with increased risk for diabetes (prediabetes) > or =6.5% Consistent with diabetes This assay result is consistent with a decreased risk of diabetes. Currently, no consensus exists regarding use of hemoglobin A1c for diagnosis of diabetes in children. According to [place] Diabetes Association (ADA) guidelines, hemoglobin A1c <7.0% represents optimal control in non- diabetic patients. Different metrics may apply to specific patient populations. Standards of Medical Care in Diabetes(ADA). LIPID PANEL, STANDARD (7600) Reviewed date:05/07/2024 08:59:30 AM Interpretation: Performing Lab:ANA LUISA [facility] [id number] [address] [facility], [place] HospitalRafwAS[address] Benny De Leon Notes/Report: NON-FASTING; NON-FASTING FASTING:YES FASTING: YES CHOLESTEROL, TOTAL 158 <200 mg/dL HDL CHOLESTEROL 50 > OR = 50 mg/dL TRIGLYCERIDES 184 <150 mg/dL LDL-CHOLESTEROL 80 Reference range: <100 Desirable range <100 mg/dL for primary prevention; <70 mg/dL for patients with CHD or diabetic patients with > or = 2 CHD risk factors. LDL-C is now calculated using the Shanice calculation, which is a validated novel method providing better accuracy than the Friedewald equation in the estimation of LDL-C. Sumeet EDGE et al. MADIHA. 2013;310(19): 7940-5203 (http://education.PriceTag.GuidesMob/faq/JEY039) CHOL/HDLC RATIO 3.2 <5.0 (calc) NON HDL CHOLESTEROL 108 <130 mg/dL (calc) For patients with diabetes plus 1 major ASCVD risk factor, treating to a non-HDL-C goal of <100 mg/dL (LDL-C of <70 mg/dL) is considered a therapeutic option. Urinalysis Reviewed date:07/17/2024 11:51:17 AM Interpretation: Performing Lab: Notes/Report: Color/Clarity yellow Leuk neg Nitrite neg Urobili 0.2 Protein neg pH 5.5 Blood neg Sp. Gr. 1.020 Ketone neg Bili neg Glucose neg LIPID PANEL, STANDARD (7600) Reviewed date:07/30/2024 02:35:13 PM Interpretation: Performing Lab:CB, [facility] [id number], [place] [id number] Benny De Leon Notes/Report: NON-FASTING; NON-FASTING; NON-FASTING FASTING:YES FASTING: YES CHOLESTEROL, TOTAL 139 <200 mg/dL HDL CHOLESTEROL 48 > OR = 50 mg/dL TRIGLYCERIDES 158 <150 mg/dL LDL-CHOLESTEROL 67 Reference range: <100 Desirable range <100 mg/dL for primary prevention; <70 mg/dL for patients with CHD or diabetic patients with > or = 2 CHD risk factors. LDL-C is now calculated using the Sumeet-Lee calculation, which is a validated novel method providing better accuracy than the Friedewald equation in the estimation of LDL-C. Sumeet SS et al. MADIHA. 2013;310(19): 8399-9201 (http://education.PriceTag.GuidesMob/faq/CFT871) CHOL/HDLC RATIO 2.9 <5.0 (calc) NON HDL CHOLESTEROL 91 <130 mg/dL (calc) For patients with diabetes plus 1 major ASCVD risk factor, treating to a non-HDL-C goal of <100 mg/dL (LDL-C of <70 mg/dL) is considered a therapeutic option. Urinalysis Reviewed date:02/06/2024 04:58:12 PM Interpretation: Performing Lab: Notes/Report: Color/Clarity yellow Leuk neg Nitrite neg Urobili 1.0 Protein ng pH 6.0 Blood neg Sp. Gr. 1.025 Ketone neg Bili neg Glucose neg Medications Medication SIG (Take, Route, Frequency, Duration) Notes Start Date End Date Status Zinc 50 MG 1 tab(s) orally once a day; Duration: 30 day(s) Active Norvasc 5 MG 1 tab(s) orally once a day; Duration: 90 days 03/26/2022 Active Fish Oil 1000 MG 1 cap(s) orally daily Active Viibryd 40 MG 1 tab(s) orally once a day; Duration: 90 days Active Vitamin D3 25 MCG (1000 UT) as directed orally once a day; Duration: 30 day(s) Active Fluticasone Propionate 50 MCG/ACT 2 sprays in each nostril once a day; Duration: 90 days 05/09/2022 Active Calcium 500 MG 1 TAB TID *Please review and pick correct strength-formulat ion from [employer] options. If intended option is not shown, discontinue and re-order from Quick Search* Active Montelukast Sodium 10 MG 1 tab(s) orally once a day; Duration: 90 days Active Ofloxacin 0.3 % 10 drops into affected ear Otic Once a day; Duration: 7 days 12/14/2024 Active Gemtesa 75 MG 1 tab(s) orally once a day; Duration: 30 day(s) 04/03/2022 Active Cyclobenzaprine HCl 10 MG 1 tab(s) orally once a day; Duration: 30 days Active Lisinopril 20 MG Take 1 tablet by mouth once daily; Duration: 90 Active Ibuprofen 200 MG 1 tab(s) orally every 6 hours Active Methocarbamol 500 MG 1-2 tab(s) orally 4 times a day; Duration: 30 days 05/22/2022 Active HYDROcodone-Acetamino phen 5-325 MG 1 tab(s) orally every 6 hours; Duration: 30 day(s) 12/16/2024 Active Estradiol 0.1 MG/GM as directed intravaginally 3 times a week; Duration: 30 days 02/06/2024 Active Cephalexin 500 MG 1 capsule Orally 3 time a day; Duration: 7 days 12/14/2024 Active Aspirin 81 MG 1 tab(s) orally once a day 12/20/2015 Active Atorvastatin Calcium 80 MG 1 tab(s) orally once a day; Duration: 90 days 07/05/2020 Active Magnesium 400MG 1 TABLET BID *Please review and pick correct strength-formulat ion from [employer] options. If intended option is not shown, discontinue and re-order from Quick Search* Active buPROPion HCl ER (XL) 300 MG 1 tab(s) orally every 24 hours; Duration: 90 day(s) Active Cetirizine HCl 10 MG 1 tab(s) orally onc e a day; Duration: 30 days 11/05/2017 Active Diflucan 150 MG 1 tablet Orally daily; Duration: 10 days 12/22/2024 Active Ozempic (0.25 or 0.5 MG/DOSE) 2 MG/3ML 0.5 MG Subcutaneous weekly; Duration: 28 days 07/31/2024 Active Immunizations Vaccine Route Administration Date Status Comme nts SHINGRIX Unknown 01/26/2019 Administered Toyo SHINGRIX IM Intramuscular 10/20/2024 Administered Prevnar PCV-20 (Pneumococcal conjugate 20) IM Intramuscular 11/05/2022 Administered Pneumovax 23 Unknown 01/26/2019 Administered Toyo Influenza-Fluzone 3+years (NON-MEDICARE) IM Intramuscular 02/10/2015 Administered Influenza-Fluzone 3+years (NON-MEDICARE) IM Intramuscular 03/29/2016 Administered Fluzone High Dose IM Intramuscular 02/26/2023 Administered Fluzone High Dose IM Intramuscular 01/23/2024 Administered FLUZONE 6MO - OLDER Unknown 01/26/2019 Administered Toy o Fluvirin--Influenza vaccine 3+ year Unknown 03/01/2010 Administered Flublok IM Intramuscular 02/17/2020 Administered Flublok IM Intramuscular 01/16/2022 Administered Adacel (Tdap) IM Intramuscular 04/11/2017 Administered Problems Problem Type SNOMED Code ICD Code Onset Dates Problem Status W/U Status Risk Notes Problem Type 2 diabetes mellitus with other specified complication (E11.69) Active confirmed Problem Mixed hyperlipidemia (391771911) Mixed hyperlipidemia (E78.2) Active confirmed Problem Episodic tension-typ e headache (386050273) Episodic tension-type headache, not intractable (G44.219) Active confirmed Problem Chronic pain syndrom e (080584710) Chronic pain syndrome (G89.4) Active confirmed Problem Essential hypertension (38265125) Essential (primary) hypertension (I10) Active confirmed Problem Chronic maxillary sinusitis (28489755) Chronic maxillary sinusitis (J32.0) Active confirmed Problem Panlobular emphysema (2359090) Panlobular emphysema (J43.1) Active confirmed Problem Urge incontinence of urine (91531725) Urge incontinence (N39.41) Active confirmed Problem Mixed anxiety and depressive disorder (458437038) Depression with anxiety (F41.8) Active confirmed Problem Vitamin D deficiency (65010397) Vitamin D deficiency (E55.9) Active confirmed Problem Recurrent urinary tract infection (134417715) Recurrent UTI (N39.0) Active confirmed Problem Hypertriglyceridemia (486806661) Hypertriglyceridemia (E78.1) Active confirmed Problem Seasonal allergic rhinitis (321411260) Seasonal allergic rhinitis (J30.2) Active confirmed Problem Body mass index 30.0 0 to 34.99 (527736796015050) BMI 34.0-34.9,adult (Z68.34) Active confirmed Problem Chronic pain (06275211) Other chronic pain (G89.29) Active confirmed Problem Obesity (512145177) Obesity, uns pecified (E66.9) Active confirmed Problem Nephrolithiasis (33649252) Nephrolithiasis (N20.0) Active confirmed Problem Primary osteoarthritis (232233698) Primary osteoarthritis involving multiple joints (M15.0) Active confirmed Problem Peripheral edema (25357965) Peripheral edema (R60.9) Active confirmed Problem Gouty arthritis (75836008) Gouty arthritis (M10.9) Active confirmed Problem Sacroiliitis (48485848) Sacroiliitis (M46.1) Active confirmed Problem Arthritis of both hands (089698529742762) Arthritis of both hands (M19.90) Active confirmed Problem Localized, primary osteoarthritis of the hand (424418663) Primary osteoarthritis of right hand (M19.041) Active confirmed Problem Sciatic nerve lesion (239829591) Piriformis syndrome of left side (G57.02) Active confirmed Problem Recurrent major depression in remission (99759171) Recurrent major depressive disorder, in partial remission (F33.41) Active confirmed Problem Daytime somnolence (526477442446) Daytime somnolence (R40.0) Active confirmed Problem Chronic vaginitis (90013980) Chronic vaginitis (N76.1) Active confirmed Problem Type II diabetes mellitus without complication (182935903) Type 2 diabetes mellitus without complication, without long-term current use of insulin (E11.9) Active confirmed Problem Varicose veins of bilateral lower limbs (64892548170328576) Varicose veins of both legs with edema (I83.893) Active confirmed Problem Mucopurulent chronic bronchitis (98910030) Bronchitis, mucopurulent recurrent (J41.1) Active confirmed Problem Arthritis of right hand (995928145637789) Arthritis of right hand (M19.041) Active confirmed Problem Gout (33228642) Acute gout of le ft foot, unspecified cause (M10.9) Active confirmed Problem Seasonal allergic rhinitis (920373501) Seasonal allergic rhinitis, unspecified trigger (J30.2) Active confirmed Vital Signs Heart Rate 78 /min 12/17/2024 dw Temperature 98 degrees Fahrenheit 12/17/2024 dw Blood pressure diastolic 80 mm Hg 12/17/2024 dw Height 5 ft 2.5 in in 12/17/2024 dw Blood pressure systolic 138 mm Hg 12/17/2024 dw Weight 148 lbs 12/17/2024 dw BMI 26.64 kg/m2 12/17/2024 dw Encounters Encounter Location Date Provider Diagnosis [place] [facility] MARCELINA [address] [place] [address] 07/25/2024 Provider Migration Acute vaginitis N76.[address] [address] 01/23/2024 Jesus Vicente Essential (primary) hypertension I10 ; Primary osteoarthritis involving multiple joints M15.0 ; Bronchitis, mucopurulent recurrent J41.1 and Immunization(s) administered Z23 [facility] [address] [address] 02/06/2024 Jesus Vicente Dysuria R30.0 ; Acut e recurrent maxillary sinusitis J01.01 and Localized lipodystrophy E88.[address] [address] 05/05/2024 Jesus Vicente Mixed hyperlipidemia E78.2 ; Essential (primary) hypertension I10 ; Primary osteoarthritis involving multiple joints M15.0 and Other chronic pain G89.[address] [place] [address] 07/17/2024 Beata McNees Dysuria R30.0 and Ac manzanita vaginitis N76.0 [facility] [place] [address] [address] 07/28/2024 Jesus Vicente Hypertriglyceridemia E78.1 ; Type 2 diabetes mellitus with other specified complication E11.69 ; Essential (primary) hypertension I10 ; Bronchitis, mucopurulent recurrent J41.1 ; Chronic pain syndrome G89.4 ; BMI 34.0-34.9,adult Z68.34 and Routine medical exam Z00.00 [facility] [place] [address] [address] 10/20/2024 Jesus Vicente Essential (primary) hypertension I10 ; Hypertriglyceridemia E78.1 ; Seasonal allergic rhinitis J30.2 ; Panlobular emphysema J43.1 ; Type 2 diabetes mellitus without complication, without long-term current use of insulin E11.9 ; Piriformis syndrome of left side G57.02 ; Encounter for immunization Z23 and Routine medical exam Z00.00 [facility] [address] [address] 11/09/2024 Beata McNees Acute non-recurrent pansinusitis J01.40 [facility] [place] [address] [address] 11/17/2024 Jesus Vicente Acute recurrent maxi llary sinusitis J01.[address] [place] [address] 11/24/2024 Jesus Vicente Breast lump in femal e N63.0 and Mass of upper inner quadrant of right breast N63.12 [facility] [place] [address] [address] 12/14/2024 Beata McNees Cellulitis of right ear canal H60.[address] [place] [address] [address] 12/17/2024 Jesus Vicente Acute otitis externa of right ear, unspecified type H60.[address] [place] [address] [address] 01/07/2024 Pretty Bukrs [place] [address] 01/21/2024 Jesus Besson [facility] [address] [place] [address] 01/24/2024 Jesus Besson [facility] [address] [place] [address] 01/29/2024 Jesus Besson [facility] [address] [place] [address] 02/27/2024 Jesus Besson [facility] [address] [place] [address] 03/27/2024 Jesus Besson [facility] [address] [place] [address] 03/30/2024 Jesus Besson [facility] [address] [place] [address] 04/27/2024 Jesus Besson [facility] [address] [facility] [address] [place] [address], [place] [address] 04/30/2024 Jesus Besson [facility] [address] [facility] [address] [place] [address], [place] [address] 05/05/2024 Jesus Besson Essential (primary) hypertension I10 [facility] [address] [place] [address] 05/28/2024 Jesus Besson [facility] [address] [facility] [address] [place] [address], [place] [address] 05/28/2024 Jesus Besson [facility] [address] [facility] [address] [place] [address], [place] [address] 06/01/2024 Jesus Besson [facility] [address] [facility] [address] [place] [address], [place] [address] 06/24/2024 Jesus Besson [facility] [address] [facility] [address] [place] [address] 07/16/2024 Jesus Besson [facility] [address] [facility] [address] [place] [address] 07/27/2024 Jesus Besson [facility] MARCELINA [address] [place] [address] 07/29/2024 Jesus Vicente Visit for screening mammogram Z12.31 ; History of nicotine dependence Z87.891 and Asymptomatic age-related postmenopausal state Z78.0 [facility] [address] [place] [address] 07/31/2024 Beata Dinh [facility] [address] [place] [address] 08/24/2024 Jesus Besson [facility] [place] [address] [place] [address] 09/11/2024 Jesus Besson Acute right-sided lo w back pain without sciatica M54.50 [facility] [address] [place] [address] 09/22/2024 Jesus Besson [facility] [address] [place] [address] 09/24/2024 Jesus Besson Hypertriglyceridemia E78.1 [facility] [address] [place] [address] 10/20/2024 Jesus Besson [facility] [place] [address] [place] [address] 10/21/2024 Jesus Besson [facility] [place] [address] [place] [address] 10/27/2024 Jesus Besson Essential (primary) hypertension I10 [facility] [address] [place] [address] 11/10/2024 Jesus Besson [facility] [place] [address] [place] [address] 11/19/2024 Jesus Besson [facility] [place] [address] [place] [address] 12/10/2024 Jesus Besson [facility] [place] [address] [place] [address] 12/10/2024 Jesus Besson [facility] [place] [address] [place] [address] 12/16/2024 Jesus Besson [facility] [place] [address] [place] [address] 12/17/2024 Jesus Besson [facility] [place] [address] [place] [address] 12/22/2024 Jesus Besson Assessments Encounter Date Diagnosis (ICD Code) Assessment Notes Treatment Notes Treatment Clinical Notes Section Notes 01/23/2024 Essential (primary) hypertension (ICD-10 - I10) No changes in plan. Blood pressure well-controlled. 01/23/2024 Primary osteoarthrit is involving multiple joints (ICD-10 - M15.0) Patient has been compliant with our office and [place] regulations r.e. meds. No concerns on my part about diversion or misuse. Labs and Refugio reports reviewed and are appropriate. 02/06/2024 Dysuria (ICD-10 - R30.0) UA unremarkable. Notices vaginal rawness and unusual odor after wiping. Was on vaginal estrogen in the past with no symptoms. Will restart. 02/06/2024 Acute recurrent maxillary sinusitis (ICD-10 - J01.01) Ongoing for >10 days. No fever. Will trial Augmentin. 05/05/2024 Essential (primary) hypertension (ICD-10 - I10) 07/17/2024 Dysuria (ICD-10 - R30.0) 07/17/2024 Acute vaginitis (ICD -10 - N76.0) Reassurance UA is normal. Treat for vaginitis with diflucan and flagyl. Flagyl sent by Dr. Vicente yesterday and is at the pharmacy ready for pear picker. Keep clean and dry. Increase oral fluid intake. Will send urine for cx 07/25/2024 Acute vaginitis (ICD -10 - N76.0) 07/28/2024 Hypertriglyceridemia (ICD-10 - E78.1) Overall doing pretty well. Will check labs today. Seems to be doing well in regards to diet and exercise. 07/28/2024 Type 2 diabetes mellitus with other specified complication (ICD-10 - E11.69) Check A1c. Currently on good regimen. 05/05/2024 Mixed hyperlipidemia (ICD-10 - E78.2) Current regimen is atorvastatin. Patient endorses no complaints of fatigue or muscle weakness. She does not report needing refills at this time. Last lipid panel was from 6 months ago. Will repeat lipid panel. 05/05/2024 Essential (primary) hypertension (ICD-10 - I10) Blood pressure in office today was 120/78. Patient reports this is comparable to her blood pressures at home. Encouraged patient to continue monitoring blood pressure at home. Current regimen consists of lisinopril and Norvasc. Continue current regimen. 07/29/2024 Visit for screening mammogram (ICD-10 - Z12.31) 09/11/2024 Acute right-sided lo w back pain without sciatica (ICD-10 - M54.50) 09/24/2024 Hypertriglyceridemia (ICD-10 - E78.1) 10/20/2024 Essential (primary) hypertension (ICD-10 - I10) Blood pressure is well-controlled. No changes in plan. Renal function has been normal. 10/20/2024 Hypertriglyceridemia (ICD-10 - E78.1) Lipid profiles have been good. No changes in plan at this point. 10/27/2024 Essential (primary) hypertension (ICD-10 - I10) 11/09/2024 Acute non-recurrent pansinusitis (ICD-10 - J01.40) Discussed the etiology and expected course of acute sinusitis. Discussed the rationale for antibiotics use and the importance of completing the Augmentin prescription as prescribed. Dexamethasone given IM. Discussed supportive care with antihistamines and appropriate decongestants. Discussed the signs and symptoms of worsening infection that may indicate need for reassessment in clinic/ED. 11/17/2024 Acute recurrent maxillary sinusitis (ICD-10 - J01.01) 11/24/2024 Breast lump in femal e (ICD-10 - N63.0) Isolated mass is not super concerning but given the presence of the scarring and skin changes probably 2 different locations need biopsied. Surgical referral 11/24/2024 Mass of upper inner quadrant of right breast (ICD-10 - N63.12) Will Refer to Breast surgeon for concern for breast cancer. 12/14/2024 Cellulitis of right ear canal (ICD-10 - H60.11) Treat with topical and oral abx. Warm compresses TID. Supportive care and return precautions discussed 12/17/2024 Acute otitis externa of right ear, [...] what ever foreign body might be present. 10/20/2024 Seasonal allergic rhinitis (ICD-10 - J30.2) Stable on current therapy 07/29/2024 History of nicotine dependence (ICD-10 - Z87.891) 05/05/2024 Primary osteoarthrit is involving multiple joints (ICD-10 - M15.0) Patient denies any increased joint stiffness and joint pain. Has no acute complaints regarding her osteoarthritis. She denies any recent falls. Patient only reports losing footing due to current icy conditions. Continue current regimen. No medication refills needed at this time. 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 No pain. She will monitor for growth. Can use heat pad if discomfort present. 01/23/2024 Bronchitis, mucopurulent recurrent (ICD-10 - J41.1) Stable. On inhalers. Continue efforts at smoking cessation 01/23/2024 Immunization(s) administered (ICD-10 - Z23) 07/28/2024 Bronchitis, mucopurulent recurrent (ICD-10 - J41.1) On good inhaler therapy. 05/05/2024 Other chronic pain (ICD-10 - G89.29) Patient reports pain is well-controlled on current regimen. She denies any issues with constipation. Patient is having daily bowel movements with ease 07/29/2024 Asymptomatic age-related postmenopausal state (ICD-10 - Z78.0) 10/20/2024 Panlobular emphysema (ICD-10 - J43.1) Non-smoker. On appropriate inhalers 10/20/2024 Type 2 diabetes mellitus without complication, without long-term current use of insulin (ICD-10 - E11.9) A1c has been well-controlled, up-to-date with eye exams and other issues with diabetes 07/28/2024 Chronic pain syndrom e (ICD-10 - G89.4) Has tolerated recent reduction in opiate dose well. No changes in plan at this point. 07/28/2024 BMI 34.0-34.9,adult (ICD-10 - Z68.34) BMI improving 10/20/2024 Piriformis syndrome of left side (ICD-10 - G57.02) Discussed piriformis syndrome with patient, recommended stretching program. 07/28/2024 Routine medical exam (ICD-10 - Z00.00) Needs DEXA scan and mammogram updated. This will be ordered. Up-to-date with colon screening. Up-to-date with vaccines. No falls, non-smoker, depressive screening negative. Dementia screen normal with good 3/3 word recall 10/20/2024 Encounter for immunization (ICD-10 - Z23) Will finish up shingles series. Otherwise up-to-date with shots 10/20/2024 Routine medical exam (ICD-10 - Z00.00) HRA reviewed, no falls, 3/3 word recall. Depression screening negative. Lifelong non-smoker. Mammograms, DEXA and colonoscopy screening up-to-date. 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 05/05/2024 Other Overall, impressed with patient's current condition. I would like for the patient to follow-up with me in 3 months. For today's visit, will draw lipid panel and CMP as they have not been drawn in 6 months. Will alter regimen if lab results reveal necessity. 10/20/2024 Other Patient has been compliant with our office and [place] regulations r.e. meds. No concerns on my part about diversion or misuse. Labs and [place] reports reviewed and are appropriate. Patient rarely takes her hydrocodone for ongoing chronic pain issues. No changes in plan Plan Of Treatment Pending Test Test Name Order Date N-CBC 09/03/2006 X-Lipid Profile 09/03/2006 X ray : Chest 09/24/2007 N-Uric acid 11/23/2009 N-Urine Culture and Sensitivity 12/02/19 09 N-Urine Culture and Sensitivity 08/12/19 10 Urinalysis 03/03/2007 Urinalysis 10/21/2007 Urinalysis 03/15/2006 Urinalysis 02/07/2007 N-TSH (Thyroid Stimulating Hormone) 08/20 DEXA Hip and Spine - Screening 8 DEXA Hip and Spine - Screening 3 N-CMP 11/23/2009 N-CMP 09/03/2006 N-Lipid Panel 11/23/2009 Sleep Study 11/05/2017 EKG : In House 12/07/2009 Mammogram : Bilateral 06/25/2013 Mammogram : Bilateral 09/16/2007 Mammogram : Bilateral 10/20/2008 Mammogram : Bilateral 11/28/2021 Dietary Consult 07/25/2022 Physical Therapy : Wound Care 05/08/2012 H-CMP 12/20/2015 H-LIPID PANEL 12/20/2015 H-TSH 12/20/2015 H-VIT D, 25-HYDROXY 12/20/2015 C-HEPATITIS PANEL 03/29/2016 C-URINE CULTURE 12/09/2015 C-URINE CULTURE 02/04/2015 C-URINE CULTURE 01/19/2019 Urine Culture, Routine 03/15/2015 Urine Culture, Routine 07/15/2017 Urine Culture, Routine 12/17/2013 Urine Culture, Routine 10/16/2014 Urine Culture, Routine 09/26/2015 Rapid Flu, A 05/30/2011 Rapid Flu, B 05/30/2011 Vaginitis/Vaginosis, DNA Probe 0 VENIPUNCT, ROUTINE* 03/29/2016 M-Complete Blood Count Auto Diff 021 M-Comprehensive Metabolic Panel 09/10/19 M-Comprehensive Metabolic Panel 10/08/19 20 M-Basic Metabolic Panel 04/30/2022 M-Uric Acid 04/30/2022 M-Lipid Panel 09/09/2020 M-Lipid Panel 10/08/2019 M-Drug Screen,Urine 09/09/2020 M-Vitamin B12 09/09/2020 M-Vitamin D 25 Hydroxy 09/09/2020 M-Vitamin D 25 Hydroxy 02/16/2021 M-Urine Culture 08/16/2020 Culture, Urine 08/04/2021 CULTURE, URINE, ROUTINE (395) 08/16/2022 CULTURE URINE 03/06/2023 DEXA VERTEBRAL FX ASSESS 10/29/2023 Next Appt Details Provider Name:Jesus Vicente, 02/04/2025 10:15:00 AM, [address], [address], Insurance Providers Payer Name Payer Address Payer Phone Subscriber Number Group Number Insured Name Patient Relationship to Insured Coverage Start Date Coverage End Date [employer] [address] [address] [place] [address] [phone] [id number] Miriam Montes De Oca Self - [facility] is the [facility] [address] [address] [place] [address] [phone] [id number] Miriam Montes De Oca Self - patient is the insured Medications Administered Medication Instructions Date of Administration Dosage Notes Ceftriaxone 500 12/12/2012 500 mg Ceftriaxone 500 04/23/2014 500 Ceftriaxone 500 12/14/2014 500 mg Ceftriaxone 500 01/25/2016 500 mg Dexamethasone 4mg Injection 01/16/2021 4 mg Dexamethasone 4mg Injection 02/16/2021 4 mg Dexamethasone 4mg Injection 04/03/2021 4 mg Dexamethasone 4mg Injection 05/02/2021 4 mg Dexamethasone 4mg Injection 07/10/2021 4 mg Dexamethasone 4mg Injection 10/05/2021 4 mg Dexamethasone 4mg Injection 11/05/2022 4 mg Dexamethasone 4mg Injection 12/14/2022 4 mg Dexamethasone 4mg Injection 11/09/2024 4 mg Kenalog 40mg 03/05/2017 40 mg Kenalog 40mg 03/29/2017 40 mg Kenalog 40mg 06/25/2017 40 mg Triamcinolone Acetonide 40mg Injection 03/27/2018 1 mL Triamcinolone Acetonide 40mg Injection 09/02/2018 1 mL Triamcinolone Acetonide 40mg Injection 09/26/2018 1 mL Triamcinolone Acetonide 40mg Injection 03/31/2019 1 mL Triamcinolone Acetonide 40mg Injection 07/07/2019 1 mL Triamcinolone Acetonide 40mg Injection 05/17/2020 1 mL Kenalog 08/15/2012 1 Kenalog 12/12/2012 1 Kenalog 08/20/2013 1 mL Kenalog 06/21/2014 1 Kenalog 09/07/2014 1 Kenalog 12/14/2014 1 mL Kenalog 12/21/2014 1 mL Kenalog 04/12/2015 1 mL Kenalog 08/04/2015 1 mL Kenalog 10/14/2015 1 mL Kenalog 12/27/2015 1 mL Medical (General) History Medical History History ICD Code kidney stones Esophageal reflux hormone replacement therapy allergies arthritis rotator cuff surgery, left hysterectomy Depression with anxiety Recurrent UTI Recurrent sinusitis HLD HTN Cologuard negative 06/14 Normal mammogram 11/11 and 08/14 Normal DEXA scan 08/14 Surgical History Surgery Date(Month/Year) hysterectomy gallbladder removed scartissue removed appendectomy left shoulder surgery bilateral ear tubes 04/2018 right foot/ankle x 2 11/2019 Hospitalization History Reason Date(Month/Year) kidney stones above surgeries
== END 2024-12-29 23:59 ==
LOC: LAB.DROPOF 01-01 09:24
PROVIDERS: PCP Internal Medicine Adolescent Medicine; Visit Provider Nurse Practitioner
DX: J34.0 Abscess, furuncle and carbuncle of nose (principal)
CPT/HCPCS: 87070; 87077; 87186